=== PATIENT | male | born 1940 | race American Indian/Alaskan Native ===

== ENCOUNTER 2017-09-18 04:40 | Emergency (ER) | payer MEDICARE ==
--- NOTE | 2017-09-18 05:53 | Cat Scan Report ---
FINAL REPORT EXAM: CT HEAD/BRAIN WO CON HISTORY: tingling both hands and feet , elev BP, pain in back of head, Ne TECHNIQUE: Routine axial imaging was obtained of the brain without IV contrast. Comparison is made to the study 02/14/2014. FINDINGS: There is a low-attenuation area in the left cerebellar hemisphere with patchy hemorrhage and surrounding edema. There is slight mass effect on the 4th ventricle. The findings compatible with an acute to subacute hemorrhagic infarct. There is no evidence of proximal hydrocephalus. There is mild generalized volume loss. There are no extra-axial fluid collections. The sinuses reveal patchy mucosal thickening in the frontal, ethmoidal and sphenoid sinuses. The mastoid air cells are well pneumatized. IMPRESSION: Acute subacute hemorrhagic infarct in the left cerebellar hemisphere with slight mass effect on the 4th ventricle. No evidence of proximal hydrocephalus. Sinusitis as described. The findings were discussed with Dr. Recinos at 5:48 a.m. on 09/18/2017.
[2017-09-18 06:30] LABS: Hematocrit 36.2 % (35.5-45.6); Mean Corpuscular HGB Conc 33 % (32-34); Mean Corpuscular Hemoglobin 29 pg (28-32); Mean Corpuscular Volume 87 fl (84-94); Platelet Count 217 K/mm3 (140-440); Red Blood Count 4.15 M/mm3 (3.65-5.03); Red Cell Distribution Width 14.5 % (13.2-15.2); White Blood Count 6.6 K/mm3 (4.5-11.0)
--- NOTE | 2017-09-18 06:33 | Emergency Department Report ---
ED Neuro Deficit HPI - General Chief Complaint: Weakness Stated Complaint: HBP Time Seen by Provider: 09/18/17 06:11 Source: patient, EMS Mode of arrival: Stretcher Limitations: No Limitations - History of Present Illness Initial Comments: Mr. Leija is 77 years old male history of CABG, hypertension, cerebellar stroke last week for which she was admitted at [facility]. He presented today via EMS as a code stroke. Patient stated that since yesterday he started to have headache but he woke up this morning with right side numbness and tingling sensation. He denied any weakness or speech problem. When asking about imbalance or ataxia he stated that he did not stand up to feel that yet. Patient denied any bowel or bladder incontinence. Patient denied neck stiffness and fever. -: Last night Location: right arm, right leg History of same: Yes Quality: numb Associated Symptoms: headaches - Related Data Home Medications: Home Medications Medication Instructions Recorded Confirmed Last Taken Acetaminophen [Tylenol Extra 500 mg PO Q6HR PRN 09/18/17 09/18/17 Unknown Strength] AtorvaSTATin [Lipitor] 40 mg PO QHS 09/18/17 09/18/17 09/17/17 Cetirizine HCl [All Day Allergy] 10 mg PO DAILY PRN 09/18/17 09/18/17 Unknown Esomeprazole Magnesium [Nexium] 40 mg PO DAILY 09/18/17 09/18/17 09/17/17 Pantoprazole [Protonix] 40 mg PO QDAY 09/18/17 09/18/17 Unknown Simethicone [Gas Relief] 125 mg PO DAILY PRN 09/18/17 09/18/17 Unknown metFORMIN [Glucophage] 1,000 mg PO BID 09/18/17 09/18/17 09/17/17 Allergies/Adverse Reactions: Allergies Allergy/AdvReac Type Severity Reaction Status Date / Time ibuprofen Allergy Severe Shortness Verified 02/14/14 11:43 of Breath aspirin Allergy Shortness Verified 02/14/14 11:43 of Breath ED Review of Systems ROS: Stated complaint: HBP Other details as noted in HPI Comment: All other systems reviewed and negative Constitutional: denies: chills, fever Respiratory: denies: cough, orthopnea, shortness of breath, SOB with exertion Cardiovascular: denies: chest pain, palpitations, dyspnea on exertion, edema Gastrointestinal: denies: abdominal pain, nausea, vomiting, diarrhea, hematemesis, melena, hematochezia Musculoskeletal: denies: back pain Skin: denies: rash Neurological: headache, numbness, paresthesias. denies: weakness, confusion ED Past Medical Hx - Past Medical History Previous Medical History?: Yes Hx Hypertension: Yes Hx Diabetes: Yes Additional medical history: TIA - Surgical History Past Surgical History?: No Additional Surgical History: bypass, cardiac stents - Social History Smoking Status: Never Smoker Substance Use Type: Alcohol - Medications Home Medications: Home Medications Medication Instructions Recorded Confirmed Last Taken Type Acetaminophen [Tylenol Extra 500 mg PO Q6HR PRN 09/18/17 09/18/17 Unknown History Strength] AtorvaSTATin [Lipitor] 40 mg PO QHS 09/18/17 09/18/17 09/17/17 History Cetirizine HCl [All Day Allergy] 10 mg PO DAILY PRN 09/18/17 09/18/17 Unknown History Esomeprazole Magnesium [Nexium] 40 mg PO DAILY 09/18/17 09/18/17 09/17/17 History Pantoprazole [Protonix] 40 mg PO QDAY 09/18/17 09/18/17 Unknown History Simethicone [Gas Relief] 125 mg PO DAILY PRN 09/18/17 09/18/17 Unknown History metFORMIN [Glucophage] 1,000 mg PO BID 09/18/17 09/18/17 09/17/17 History ED Neuro Physical Exam - General Limitations: No Limitations General appearance: alert, in no apparent distress Suspected Stroke: Yes - Head Head exam: Present: atraumatic, normocephalic, normal inspection - Eye Eye exam: Present: normal appearance, PERRL - ENT ENT exam: Present: normal exam, normal orophraynx, mucous membranes moist - Neck Neck exam: Present: normal inspection, full ROM. Absent: tenderness, meningismus, lymphadenopathy - Respiratory Respiratory exam: Present: normal lung sounds bilaterally. Absent: respiratory distress, wheezes, rales, rhonchi, stridor, chest wall tenderness, accessory muscle use, decreased breath sounds, prolonged expiratory - Cardiovascular Cardiovascular Exam: Present: regular rate, normal rhythm, normal heart sounds - GI/Abdominal GI/Abdominal exam: Present: soft, normal bowel sounds. Absent: distended, tenderness, guarding, rebound, rigid, organomegaly, mass, bruit, pulsatile mass , hernia - Extremities Exam Extremities exam: Present: normal inspection, full ROM, normal capillary refill - Back Exam Back exam: Present: normal inspection. Absent: CVA tenderness (R), CVA tenderness (L) - Neurological Exam Neurological exam: Present: alert, oriented X3, CN II-XII intact, normal gait - NIHSS Assessment Interval: Baseline 1a. Level of Consciousness: alert 1b. LOC Questions: answers correctly 1c. LOC Commands: performs tasks correctly 2. Best Gaze: normal 3. Visual: no visual loss 4. Facial Palsy: normal symmetrical movement 5b. Motor Arm Right: no drift 5a. Motor Arm Left: no drift 6a. Motor Leg Left: no drift 6b. Motor Leg Right: no drift 7. Limb Ataxia: absent 8. Sensory: mild/moderate sensory loss 9. Best Language: no aphasia 10. Dysarthria: normal 11. Extinction/Inattention: no abnormality Total Score: 1 Stroke Severity: Minor Stroke - Skin Skin exam: Present: warm, intact, normal color. Absent: cyanosis, erythema ED Course Vital Signs 09/18/17 09/18/17 09/18/17 04:49 04:52 05:02 Temperature 98.3 F Pulse Rate 84 86 80 Respiratory 16 20 Rate Blood Pressure 148/78 148/78 Blood Pressure [Left] O2 Sat by Pulse 97 98 Oximetry 09/18/17 09/18/17 09/18/17 05:11 05:16 05:30 Temperature Pulse Rate 77 77 Respiratory 20 18 17 Rate Blood Pressure 148/78 148/78 Blood Pressure [Left] O2 Sat by Pulse 97 Oximetry 09/18/17 09/18/17 09/18/17 06:00 06:16 06:30 Temperature Pulse Rate 79 79 71 Respiratory 12 15 22 Rate Blood Pressure 148/78 148/78 148/78 Blood Pressure [Left] O2 Sat by Pulse Oximetry 09/18/17 09/18/17 09/18/17 06:46 07:00 07:15 Temperature Pulse Rate 78 79 92 H Respiratory 16 18 20 Rate Blood Pressure 148/78 186/97 Blood Pressure [Left] O2 Sat by Pulse Oximetry 09/18/17 09/18/17 09/18/17 07:23 07:30 07:38 Temperature 97.1 F L Pulse Rate 72 73 74 Respiratory 18 16 Rate Blood Pressure 198/96 198/96 Blood Pressure 190/90 [Left] O2 Sat by Pulse 97 Oximetry 09/18/17 08:01 Temperature Pulse Rate 88 Respiratory 27 H Rate Blood Pressure 143/72 Blood Pressure [Left] O2 Sat by Pulse 97 Oximetry - Reevaluation(s) Reevaluation #1: 09/18/17 08:51 Patient reevaluated. Patient still denying any new weakness but he is still complaining of numbness to his right upper and lower extremity and headache. - Lab Data Result diagrams: 09/18/17 06:20 09/18/17 06:20 Lab Results 09/18/17 09/18/17 09/18/17 Range/Units 06:20 06:20 06:20 WBC 6.6 (4.5-11.0) K/mm3 RBC 4.15 (3.65-5.03) M/mm3 Hgb 12.0 (11.8-15.2) gm/dl Hct 36.2 (35.5-45.6) % MCV 87 (84-94) fl MCH 29 (28-32) pg MCHC 33 (32-34) % RDW 14.5 (13.2-15.2) % Plt Count 217 (140-440) K/mm3 Add Manual Diff Complete Total Counted 100 Seg Neuts % (Manual) 47.0 (40.0-70.0) % Band Neutrophils % 0 % Lymphocytes % (Manual) 35.0 (13.4-35.0) % Reactive Lymphs % (Man) 1.0 % Monocytes % (Manual) 10.0 H (0.0-7.3) % Eosinophils % (Manual) 6.0 H (0.0-4.3) % Basophils % (Manual) 1.0 (0.0-1.8) % Metamyelocytes % 0 % Myelocytes % 0 % Promyelocytes % 0 % Blast Cells % 0 % Nucleated RBC % Not Reportable Seg Neutrophils # Man 3.1 (1.8-7.7) K/mm3 Band Neutrophils # 0.0 K/mm3 Lymphocytes # (Manual) 2.3 (1.2-5.4) K/mm3 Abs React Lymphs (Man) 0.1 K/mm3 Monocytes # (Manual) 0.7 (0.0-0.8) K/mm3 Eosinophils # (Manual) 0.4 (0.0-0.4) K/mm3 Basophils # (Manual) 0.1 (0.0-0.1) K/mm3 Metamyelocytes # 0.0 K/mm3 Myelocytes # 0.0 K/mm3 Promyelocytes # 0.0 K/mm3 Blast Cells # 0.0 K/mm3 WBC Morphology Not Reportable Hypersegmented Neuts Not Reportable Hyposegmented Neuts Not Reportable Hypogranular Neuts Not Reportable Smudge Cells Not Reportable Toxic Granulation Not Reportable Toxic Vacuolation Not Reportable Dohle Bodies Not Reportable Pelger-Huet Anomaly Not Reportable [place] Rods Not Reportable Platelet Estimate Appears normal Clumped Platelets Not Reportable Plt Clumps, EDTA Not Reportable Large Platelets Not Reportable Giant Platelets Not Reportable Platelet Satelliting Not Reportable Plt Morphology Comment Not Reportable RBC Morphology Not Reportable Dimorphic RBCs Not Reportable Polychromasia Not Reportable Hypochromasia Not Reportable Poikilocytosis Not Reportable Anisocytosis 1+ Microcytosis Not Reportable Macrocytosis Not Reportable Spherocytes Not Reportable Pappenheimer Bodies Not Reportable Sickle Cells Not Reportable Target Cells Not Reportable Tear Drop Cells Not Reportable Ovalocytes 1+ Helmet Cells Few Chow-Tor[place] Bodies Not Reportable [place] Rings Not Reportable [place] Cells Not Reportable Bite Cells Not Reportable Crenated Cell Not Reportable Elliptocytes Few Acanthocytes (Spur) Not Reportable Rouleaux Not Reportable Hemoglobin C Crystals Not Reportable Schistocytes Not Reportable Malaria parasites Not Reportable Pravez Bodies Not Reportable Hem Pathologist Commnt No PT 12.3 (12.2-14.9) Sec. INR 0.87 (0.87-1.13) APTT 32.8 (24.2-36.6) Sec. Thrombin Time (15.1-19.6) Sec. Sodium 139 (137-145) mmol/L Potassium 4.3 (3.6-5.0) mmol/L Chloride 101.2 (98-107) mmol/L Carbon Dioxide 25 (22-30) mmol/L Anion Gap 17 mmol/L BUN 11 (9-20) mg/dL Creatinine 0.8 (0.8-1.5) mg/dL Estimated GFR > 60 ml/min BUN/Creatinine Ratio 14 % Glucose 194 H (75-100) mg/dL Calcium 9.5 (8.4-10.2) mg/dL Troponin T < 0.010 (0.00-0.029) ng/mL Urine Color (Yellow) Urine Turbidity (Clear) Urine pH (5.0-7.0) Ur Specific Allen (1.003-1.030) Urine Protein (Negative) mg/dL Urine Glucose (UA) (Negative) mg/dL Urine Ketones (Negative) mg/dL Urine Blood (Negative) Urine Nitrite (Negative) Urine Bilirubin (Negative) Urine Urobilinogen (<2.0) mg/dL Ur Leukocyte Esterase (Negative) Urine WBC (Auto) (0.0-6.0) /HPF Urine RBC (Auto) (0.0-6.0) /HPF U Epithel Cells (Auto) (0-13.0) /HPF 09/18/17 09/18/17 Range/Units 06:20 Unknown WBC (4.5-11.0) K/mm3 RBC (3.65-5.03) M/mm3 Hgb (11.8-15.2) gm/dl Hct (35.5-45.6) % MCV (84-94) fl MCH (28-32) pg MCHC (32-34) % RDW (13.2-15.2) % Plt Count (140-440) K/mm3 Add Manual Diff Total Counted Seg Neuts % (Manual) (40.0-70.0) % Band Neutrophils % % Lymphocytes % (Manual) (13.4-35.0) % Reactive Lymphs % (Man) % Monocytes % (Manual) (0.0-7.3) % Eosinophils % (Manual) (0.0-4.3) % Basophils % (Manual) (0.0-1.8) % Metamyelocytes % % Myelocytes % % Promyelocytes % % Blast Cells % % Nucleated RBC % Seg Neutrophils # Man (1.8-7.7) K/mm3 Band Neutrophils # K/mm3 Lymphocytes # (Manual) (1.2-5.4) K/mm3 Abs React Lymphs (Man) K/mm3 Monocytes # (Manual) (0.0-0.8) K/mm3 Eosinophils # (Manual) (0.0-0.4) K/mm3 Basophils # (Manual) (0.0-0.1) K/mm3 Metamyelocytes # K/mm3 Myelocytes # K/mm3 Promyelocytes # K/mm3 Blast Cells # K/mm3 WBC Morphology Hypersegmented Neuts Hyposegmented Neuts Hypogranular Neuts Smudge Cells Toxic Granulation Toxic Vacuolation Dohle Bodies Pelger-Huet Anomaly [place] Rods Platelet Estimate Clumped Platelets Plt Clumps, EDTA Large Platelets Giant Platelets Platelet Satelliting Plt Morphology Comment RBC Morphology Dimorphic RBCs Polychromasia Hypochromasia Poikilocytosis Anisocytosis Microcytosis Macrocytosis Spherocytes Pappenheimer Bodies Sickle Cells Target Cells Tear Drop Cells Ovalocytes Helmet Cells Chow-Torrance Bodies [place] Rings Guerita Cells Bite Cells Crenated Cell Elliptocytes Acanthocytes (Spur) Rouleaux Hemoglobin C Crystals Schistocytes Malaria parasites Parvez Bodies Hem Pathologist Commnt PT (12.2-14.9) Sec. INR (0.87-1.13) APTT (24.2-36.6) Sec. Thrombin Time 15.9 (15.1-19.6) Sec. Sodium (137-145) mmol/L Potassium (3.6-5.0) mmol/L Chloride (98-107) mmol/L Carbon Dioxide (22-30) mmol/L Anion Gap mmol/L BUN (9-20) mg/dL Creatinine (0.8-1.5) mg/dL Estimated GFR ml/min BUN/Creatinine Ratio % Glucose (75-100) mg/dL Calcium (8.4-10.2) mg/dL Troponin T (0.00-0.029) ng/mL Urine Color Straw (Yellow) Urine Turbidity Clear (Clear) Urine pH 7.0 (5.0-7.0) Ur Specific Allen 1.008 (1.003-1.030) Urine Protein <15 mg/dl (Negative) mg/dL Urine Glucose (UA) Neg (Negative) mg/dL Urine Ketones Neg (Negative) mg/dL Urine Blood Neg (Negative) Urine Nitrite Neg (Negative) Urine Bilirubin Neg (Negative) Urine Urobilinogen < 2.0 (<2.0) mg/dL Ur Leukocyte Esterase Neg (Negative) Urine WBC (Auto) 1.0 (0.0-6.0) /HPF Urine RBC (Auto) 1.0 (0.0-6.0) /HPF U Epithel Cells (Auto) < 1.0 (0-13.0) /HPF - EKG Data -: EKG Interpreted by Ut EKG shows normal: sinus rhythm Rate: normal Interpretation: no acute changes - Radiology Data Radiology results: report reviewed Referring Physician: BETO OLMSTEAD Patient Name: XIOMARA LEIJA Date of : 1940 Sex: Male Report Date: 2017-09-18 Report Status: Finalized Findings [facility] [address] [place] [address] Cat Scan Report Signed Patient: XIOMARA LEIJA MR#: [id number] : 1940 Acct:[id number] Age/Sex: 77 / M ADM Date: 09/18/17 Loc: ED Attending Dr: Ordering Physician: BETO OLMSTEAD MD Date of Service: 09/18/17 Procedure(s): CT head/brain wo con Accession Number(s): [id number] cc: ED MD AYSHA FINAL REPORT EXAM: CT HEAD/BRAIN WO CON HISTORY: tingling both hands and feet , elev BP, pain in back of head, Ne TECHNIQUE: Routine axial imaging was obtained of the brain without IV contrast. Comparison is made to the study 02/14/2014. FINDINGS: There is a low-attenuation area in the left cerebellar hemisphere with patchy hemorrhage and surrounding edema. There is slight mass effect on the 4th ventricle. The findings compatible with an acute to subacute hemorrhagic infarct. There is no evidence of proximal hydrocephalus. There is mild generalized volume loss. There are no extra-axial fluid collections. The sinuses reveal patchy mucosal thickening in the frontal, ethmoidal and sphenoid sinuses. The mastoid air cells are well pneumatized. IMPRESSION: Acute subacute hemorrhagic infarct in the left cerebellar hemisphere with slight mass effect on the 4th ventricle. No evidence of proximal hydrocephalus. Sinusitis as described. The findings were discussed with Dr. Recinos at 5:48 a.m. on 09/18/2017. Transcribed By: RB Dictated By: ALLYSSA LYN MD Electronically Authenticated By: ALLYSSA LYN MD Signed Date/Time: 09/18/17149 DD/ 9 TD/TT: 09/18/17149 - Medical Decision Making Discussed with Dr. Gomes from [facility], inform about the patient, he stated that he will look at the images and will call me back. Discussed with Dr. Nicole Harman from [facility] [place], she accepted the patient to be transfer to [facility] [place]. Critical care attestation.: If time is entered above; I have spent that time in minutes in the direct care of this critically ill patient, excluding procedure time. ED Disposition Clinical Impression: Stroke, New cerebellar infarct Disposition: DC/TX-70 ANOTHER TYPE HLTHCARE Is pt being admited?: No Condition: Stable Referrals: ARVIND WETZEL MD [Primary Care Provider] - 3-5 Days
[2017-09-18] MEDS ORDERED: MORPHINE ONE (06:35)
[2017-09-18 06:40] LABS: INR 0.87 (0.87-1.13); Partial Thromboplastin Time 32.8 Sec. (24.2-36.6)
[2017-09-18 06:47] LABS: Bilirubin,Urine NEG (Negative); Blood,Urine NEG (Negative); Ketones,Urine NEG (Negative); Leukocyte Esterase,Urine NEG (Negative); Nitrite,Urine NEG (Negative); Protein,Urine <15 mg/dL mg/dL (Negative); Urobilinogen,Urine < 2.0 mg/dL (<2.0)
[2017-09-18 06:51] LABS: Anion Gap 17 mmol/L; BUN/Creatinine Ratio 14; Blood Urea Nitrogen 11 mg/dL (9-20); Calcium 9.5 mg/dL (8.4-10.2); Carbon Dioxide 25 mmol/L (22-30); Chloride 101.2 mmol/L (98-107); Glucose 194 mg/dL (75-100); Potassium 4.3 mmol/L (3.6-5.0); Sodium 139 mmol/L (137-145)
[2017-09-18 07:28] LABS: Blastocytes % (Manual) 0 %
[2017-09-18 07:29] LABS: Anisocytosis 1+; Diff Status Complete; Elliptocytes Few; Helmet Cells Few; Ovalocytes 1+
[2017-09-18] MEDS ORDERED: APRESOLINE ONE (07:36)
[2017-09-18] MEDS ORDERED: APRESOLINE IV ONE (07:38)
[2017-09-18 10:32] VITALS: BP 140/73
== END 2017-09-18 11:01 | disposition other institution (70) ==
LOC: ED 04:40
DX: I63.9 Cerebral infarction, unspecified (principal); I10 Essential (primary) hypertension; E11.9 Type 2 diabetes mellitus without complications
CPT/HCPCS: 36415; 70450; 80048; 81001; 84484; 85007; 85025; 85610; 85670; 85730; 93005; 93010; 96374; 99285; J0360; J2270

== ENCOUNTER 2017-10-30 10:31 | Observation (INO) | payer MEDICARE ==
[2017-10-30] MEDS ORDERED: GARAMYCIN 80 MG in NACL 0.9% 100 ML IV SCH (11:45)
[2017-10-30] MEDS ORDERED: ANCEF/STERILE WATER 2 GM/20 ML IV NR (12:00)
--- NOTE | 2017-10-30 12:03 | Anesthesia Day of Surgery ---
Anesthesia Day of Surgery - Day of Surgery Patient Examined: Yes Patient H&P Reviewed: Yes Patient is NPO: Yes
[2017-10-30] MEDS ORDERED: ZOFRAN IV PRN (12:05)
--- NOTE | 2017-10-30 12:05 | Anesthesia Consultation ---
Anesthesia Consult and Med Hx Date of service: 10/30/17 - Airway Anesthetic Teeth Evaluation: Poor (missing/broken) ROM Head & Neck: Adequate Mental/Hyoid Distance: Adequate Mallampati Class: Class II Intubation Access Assessment: Probably Good - Pulmonary Exam CTA: Yes (decreased BS) - Cardiac Exam Cardiac Exam: RRR - Pre-Operative Health Status ASA Pre-Surgery Classification: ASA4 Proposed Anesthetic Plan: General - Pulmonary Hx Smoking: Yes (STOPPED 2002,10/10-12PPD X 35 YRS) COPD: Yes (DAILY IHHALERS) Hx Sleep Apnea: No (MARY PRE SCREEN HIGH RISK.) - Cardiovascular System Hx Hypertension: Yes (X 10 YRS) Hx Coronary Artery Disease: Yes (s/p cabg/stents) Hx Heart Attack/AMI: No Hx Angina: Yes (OCC) - Central Nervous System CVA: Yes (X2-LAST ONE 09/2017 ,RT SIDED NUMBNESS) - Gastrointestinal Hx Gastroesophageal Reflux Disease: Yes (controlled) - Endocrine Hx Non-Insulin Dependent Diabetes: Yes
--- NOTE | 2017-10-30 12:33 | Progress Note ---
Assessment and Plan wrong helim tank cannot do case until later this afternoon cases at other institution Subjective Date of service: 10/30/17 Principal diagnosis: CAP Objective - Constitutional Vitals: Vital Signs - 12hr 10/30/17 10/30/17 11:15 12:11 Temperature 97.8 F 97.8 F Pulse Rate 90 90 Respiratory 22 22 Rate Blood Pressure 144/82 144/82 O2 Sat by Pulse 97 97 Oximetry - Labs Labs: Abnormal lab results 10/30/17 Range/Units 11:29 POC Glucose 197 H (70-105)
[2017-10-30] MEDS ORDERED: AMBIEN PO PRN (12:43)
[2017-10-30] MEDS ORDERED: PEPCID IV NR (13:00)
[2017-10-30] MEDS ORDERED: NACL 0.9% 1000 ML 1,000 ML IV SCH (14:00)
[2017-10-30] MEDS ORDERED: NS 0.45/KCL 20MEQ 20 MEQ/1,000 ML BAG IV SCH (15:00)
[2017-10-30] MEDS ORDERED: LOPRESSOR ONE (18:43)
[2017-10-30] MEDS ORDERED: NORVASC ONE (18:43)
[2017-10-30] MEDS: NORVASC PO SCH (18:54)
[2017-10-30] MEDS: LOPRESSOR PO SCH ×2 (18:54→22:44)
[2017-10-30] MEDS: BROVANA NEBU IH SCH (21:46)
[2017-10-30] MEDS: PULMICORT IH SCH (21:46)
[2017-10-30] MEDS ORDERED: NON-FORMULARY (Fluticasone/Salmeterol 1 PUFF) INHALATION SCH (22:00)
[2017-10-31] MEDS ORDERED: NACL 0.9% 1000 ML 1,000 ML IV SCH (06:00)
[2017-10-31] MEDS ORDERED: PEPCID IV NR (06:00)
[2017-10-31] MEDS ORDERED: DECADRON ONE (06:47)
[2017-10-31] MEDS ORDERED: DIPRIVAN 10 MG/ML IV ONE (06:47)
[2017-10-31] MEDS ORDERED: XYLOCAINE MPF 2% ONE (06:48)
[2017-10-31] MEDS ORDERED: ZOFRAN ONE (06:48)
[2017-10-31] MEDS ORDERED: GARAMYCIN/NS 80 MG/100 ML 100 ML IV SCH (07:00)
[2017-10-31] MEDS ORDERED: ANCEF/STERILE WATER 2 GM/20 ML IV NR (07:00)
[2017-10-31] MEDS ORDERED: DILAUDID ONE (07:19)
[2017-10-31] MEDS ORDERED: NACL 0.9% 1000 ML 1,000 ML ONE ×3 (08:15→08:41)
--- NOTE | 2017-10-31 08:33 | Post Operative Note ---
Date of procedure: 10/31/17 Pre-op diagnosis: ca prostate Post-op diagnosis: same Findings: as above Procedure: cysto cryoablation prostate Anesthesia: GETA Surgeon: ALEXSANDRA SURESH Estimated blood loss: minimal Pathology: none Condition: stable Disposition: PACU
--- NOTE | 2017-10-31 08:34 | Discharge Summary ---
Short Stay Discharge Plan Activity: other (no straining ) Weight Bearing Status: Full Weight Bearing Diet: regular, low fat, low salt Special Instructions: other (inc fluids ) Durable Medical Equipment Needed Upon Discharge: other ([facility] ) Follow up with: ARVIND WETZEL MD [Primary Care Provider] - 7 Days ALEXSANDRA SURESH MD [Staff Physician] - 7 Days
[2017-10-31] MEDS ORDERED: WATER FOR IRRIG STERILE IR ONE (08:45)
[2017-10-31] MEDS: PULMICORT IH SCH (09:35)
[2017-10-31] MEDS: SUBLIMAZE IV PRN ×2 (09:35→09:55)
[2017-10-31] MEDS: BROVANA NEBU IH SCH (09:35)
[2017-10-31] MEDS ORDERED: DILAUDID IV PRN (09:50)
[2017-10-31] MEDS ORDERED: ZOFRAN IV PRN (09:50)
[2017-10-31] MEDS: LOPRESSOR PO SCH (10:00)
[2017-10-31] MEDS: NORVASC PO SCH (10:00)
[2017-10-31 10:44] VITALS: BP 162/92
--- NOTE | 2017-10-31 11:30 | Operative Report ---
PREOPERATIVE DIAGNOSIS: Prostate cancer, localized right lobe. POSTOPERATIVE DIAGNOSIS: Prostate cancer, localized right lobe. PROCEDURE: Cystoscopy and cryoablation of the prostate. SURGEON: Thiago Michel MD ANESTHESIA: General. FINDINGS: This is a gentleman who presented yesterday for treatment of his prostate. When he was getting in the preoperative area, he had a bowel prep and it was found that the helium tank was not the right tank for the cryoablation. We could not do the procedure. He was kept overnight for hydration. He now presents for surgery. DESCRIPTION OF PROCEDURE: The patient was brought to the operating room and placed on the operating table. Following induction of anesthesia, placed in lithotomy position, prepped and draped in usual sterile fashion. At this point, the ultrasound probe was placed and measured the gland to be 29.5-30 grams. This diminished with hormonal therapy. Acuna catheter was easily placed and the gland was imaged as mentioned. Cryoprobe 1 and 2 were placed and then Denonvilliers temperature probe was placed as was the apical temperature probe, which was the sphincter probe. Probes 5 and 6 and then 3 and 4 were placed. Excellent visualization was obtained. We rechecked the probe multiple times, then we performed flexible cystoscopy and placed the rigid Amplatz wire and placed the warming device. The first freeze was carried out. Excellent freeze was obtained. Denonvilliers came down to approximately 2 degrees. We then did a ____ was done, we noticed that the warmer was leaking from the machine, which had been a problem last time and the warmer was changed and we reinserted a new warming catheter under ultrasound guidance once again without difficulty. The probes were checked and the second freeze was carried out in identical fashion. The patient tolerated the procedure well. A 20-minute thaw was carried out and a 20 coude was placed. The patient tolerated the procedure well and brought to recovery in stable condition. JOB# [id number] BRAXTON/SALEEM
--- NOTE | 2017-10-31 14:43 | Anesthesia Day of Surgery ---
Anesthesia Day of Surgery - Day of Surgery Patient Examined: Yes Patient H&P Reviewed: Yes Patient is NPO: Yes
--- NOTE | 2017-10-31 14:43 | Post Anesthesia Evaluation ---
- Post Anesthesia Evaluation Patient Participated: Yes Airway Patent: Yes Stable Respiratory Function: Yes Nausea/Vomiting: No Temp > 96.8F: Yes Pain Manageable: Yes Adequeate Hydration: Yes Anesthesia Complications: No
== END 2017-10-31 13:46 | disposition home health service (06) ==
LOC: OR 10:31 → 3B-SURG 13:44
PROVIDERS: ADMIT Urology; ATTEND Urology
DX: C61 Malignant neoplasm of prostate (principal)
CPT/HCPCS: 55873; 82962; 94640; 96374; 96375; A4217; C2618; G0378; J1100; J1170; J1580; J2405; J2704; J3010; J7030; J0690

== ENCOUNTER 2017-12-05 15:31 | Emergency (ER) | payer MEDICARE ==
[2017-12-05 15:49] VITALS: BP 137/73
[2017-12-05] MEDS ORDERED: NACL 0.9% 1000 ML 1,000 ML IV ONE (18:00)
--- NOTE | 2017-12-05 18:03 | Emergency Department Report ---
ED General Adult HPI - General Chief complaint: Hyperglycemia Stated complaint: BLOOD SUGAR HIGH Time Seen by Provider: 12/05/17 17:50 Source: patient Mode of arrival: Ambulatory Limitations: No Limitations - History of Present Illness Initial comments: Patient is a 77-year-old male history of diabetes who states his blood sugar was 400 this morning. Patient has had polydipsia polyuria. Patient denies missing any doses of his medications he says he has been off on the timing of his medications however recently. Patient denies any nausea vomiting diarrhea abdominal pain chest pain shortness of breath or dysuria - Related Data Home Medications Medication Instructions Recorded Confirmed Last Taken Acetaminophen [Tylenol Extra 500 mg PO Q6HR PRN 09/18/17 10/30/17 10/23/17 Strength] AtorvaSTATin [Lipitor] 40 mg PO QHS 09/18/17 10/17/17 10/29/17 Cetirizine HCl [All Day Allergy] 10 mg PO DAILY PRN 09/18/17 10/17/17 10/29/17 Pantoprazole [Protonix] 40 mg PO QDAY 09/18/17 10/17/17 10/29/17 Simethicone [Gas Relief] 125 mg PO DAILY PRN 09/18/17 10/17/17 10/29/17 metFORMIN [Glucophage] 1,000 mg PO BID 09/18/17 10/17/17 10/29/17 Fluticasone/Salmeterol [Advair 1 puff INHALATION BID 10/17/17 10/30/17 10/30/17 10:00 250-50 Diskus] Glimepiride [Amaryl] 1 mg PO QAM 10/17/17 10/17/17 10/29/17 Meloxicam [Mobic] 7.5 mg PO DAILY 10/17/17 10/17/17 10/29/17 Metoprolol [Lopressor] 100 mg PO BID 10/17/17 10/17/17 10/29/17 09:00 Oxybutynin [Ditropan] 5 mg PO BID 10/17/17 10/17/17 10/29/17 amLODIPine [Norvasc] 10 mg PO DAILY 10/17/17 10/17/17 10/29/17 Aspirin [Lo-Dose Aspirin EC] 81 mg PO DAILY 10/29/17 10/29/1718 Allergies Allergy/AdvReac Type Severity Reaction Status Date / Time ibuprofen Allergy Severe Shortness Verified 12/05/17 15:41 of Breath aspirin Allergy GI UPSET Verified 12/05/17 15:41 ED Review of Systems ROS: Stated complaint: BLOOD SUGAR HIGH Other details as noted in HPI Comment: All other systems reviewed and negative ED Past Medical Hx - Past Medical History Hx Hypertension: Yes Hx Diabetes: Yes Additional medical history: TIA - Surgical History Additional Surgical History: bypass, cardiac stents - Social History Smoking Status: Never Smoker Substance Use Type: Alcohol - Medications Home Medications: Home Medications Medication Instructions Recorded Confirmed Last Taken Type Acetaminophen [Tylenol Extra 500 mg PO Q6HR PRN 09/18/17 10/30/17 10/23/17 History Strength] AtorvaSTATin [Lipitor] 40 mg PO QHS 09/18/17 10/17/17 10/29/17 History Cetirizine HCl [All Day Allergy] 10 mg PO DAILY PRN 09/18/17 10/17/17 10/29/17 History Pantoprazole [Protonix] 40 mg PO QDAY 09/18/17 10/17/17 10/29/17 History Simethicone [Gas Relief] 125 mg PO DAILY PRN 09/18/17 10/17/17 10/29/17 History metFORMIN [Glucophage] 1,000 mg PO BID 09/18/17 10/17/17 10/29/17 History Fluticasone/Salmeterol [Advair 1 puff INHALATION BID 10/17/17 10/30/17 10/30/17 10:00 History 250-50 Diskus] Glimepiride [Amaryl] 1 mg PO QAM 10/17/17 10/17/17 10/29/17 History Meloxicam [Mobic] 7.5 mg PO DAILY 10/17/17 10/17/17 10/29/17 History Metoprolol [Lopressor] 100 mg PO BID 10/17/17 10/17/17 10/29/17 09:00 History Oxybutynin [Ditropan] 5 mg PO BID 10/17/17 10/17/17 10/29/17 History amLODIPine [Norvasc] 10 mg PO DAILY 10/17/17 10/17/17 10/29/17 History Aspirin [Lo-Dose Aspirin EC] 81 mg PO DAILY 10/29/17 10/29/17 10/29/17 History ED Physical Exam - General Limitations: No Limitations General appearance: alert, in no apparent distress - Head Head exam: Present: atraumatic, normocephalic - Eye Eye exam: Present: normal appearance - ENT ENT exam: Present: mucous membranes moist - Neck Neck exam: Present: normal inspection - Respiratory Respiratory exam: Present: normal lung sounds bilaterally. Absent: respiratory distress - Cardiovascular Cardiovascular Exam: Present: regular rate, normal rhythm. Absent: systolic murmur, diastolic murmur, rubs, gallop - GI/Abdominal GI/Abdominal exam: Present: soft, normal bowel sounds - Rectal Rectal exam: Present: deferred - Extremities Exam Extremities exam: Present: normal inspection - Back Exam Back exam: Present: normal inspection - Neurological Exam Neurological exam: Present: alert, oriented X3 - Psychiatric Psychiatric exam: Present: normal affect, normal mood - Skin Skin exam: Present: warm, dry, intact, normal color. Absent: rash ED Course Vital Signs 12/05/17 15:41 Temperature 97.5 F L Pulse Rate 69 Respiratory 18 Rate Blood Pressure 137/73 O2 Sat by Pulse 99 Oximetry ED Medical Decision Making - Lab Data Lab Results 12/05/17 Range/Units 15:50 POC Glucose 235 H (70-105) - Medical Decision Making Glucose is 235 which is not in the critical range. Patient because of the polyuria may have some mild dehydration patient will be given a liter of normal saline and be discharged home. Critical care attestation.: If time is entered above; I have spent that time in minutes in the direct care of this critically ill patient, excluding procedure time. ED Disposition Clinical Impression: Hyperglycemia Disposition: DC-01 TO HOME OR SELFCARE Is pt being admited?: No Does the pt Need Aspirin: No Condition: Stable Instructions: Diabetic Hyperglycemia (ED) Referrals: PRIMARY CARE,MD [Primary Care Provider] - 3-5 Days
== END 2017-12-05 19:46 | disposition home or self-care (01) ==
LOC: ED 15:31
DX: E11.65 Type 2 diabetes mellitus with hyperglycemia (principal); I10 Essential (primary) hypertension; Z79.82 Long term (current) use of aspirin
CPT/HCPCS: 82962; 96360; 99282; J7030

== ENCOUNTER 2019-08-24 20:26 | Inpatient (IN) | payer MEDICARE ==
--- NOTE | 2019-08-24 20:56 | Emergency Department Report ---
ED Neuro Deficit HPI - General Stated Complaint: TINGLING IN FINGERS/DIFF WALKING Time Seen by Provider: 08/24/19 20:48 - History of Present Illness Initial Comments: Patient is 79 years old male with history of hypertension, diabetes, CABG, TIA. Patient brought to the emergency room via EMS for evaluation of sudden onset of body spasm. Patient stated that his symptoms started around 7:00 tonight. Patient stated that he started having weakness in his lower extremities mainly to the left side. Patient stated that he started dragging his leg. Patient denied any difficulty speaking. Patient also denied any headache. Stroke protocol immediately initiated. -: Sudden Location: left leg Presenting Symptoms: Present: Weak/Paralyzed One Side History of same: No Place: home Severity: moderate Associated Symptoms: denies other symptoms - Related Data Home Medications: Home Medications Medication Instructions Recorded Confirmed Last Taken Cetirizine HCl [All Day Allergy] 10 mg PO DAILY PRN 09/18/17 08/24/19 10/29/17 Fluticasone/Salmeterol (Nf) 1 puff INHALATION BID 10/17/17 08/24/19 08/24/19 [Advair 250-50 Diskus (Nf)] Metoprolol [Lopressor TAB] 100 mg PO BID 10/17/17 08/24/19 08/24/19 Previous Rx's Medication Instructions Recorded Last Taken Type ALBUTEROL Inhaler (OR & NICU) 2 puff IH QID PRN #8.5 gram 08/27/19 Unknown Rx [ProAir HFA Inhaler] Acetaminophen [Acetaminophen TAB] 1 tab PO Q4H PRN #15 tablet 08/27/19 Unknown Rx AtorvaSTATin [Lipitor] 40 mg PO QHS #30 tab 08/27/19 Unknown Rx Clopidogrel [Plavix] 75 mg PO QDAY #30 tablet 08/27/19 Unknown Rx Gabapentin 100 mg PO DAILY #30 tab 08/27/19 08/24/19 Rx Oxybutynin [Ditropan] 5 mg PO BID #60 08/27/19 08/24/19 Rx Pantoprazole [Protonix TAB] 40 mg PO QDAY #30 08/27/19 08/24/19 Rx amLODIPine 10 mg PO DAILY #30 tab 08/27/19 08/24/19 Rx guaiFENesin [Robitussin] 200 mg PO Q4H PRN #30 oral.liqd 08/27/19 Unknown Rx metFORMIN [Glucophage] 2 tab PO BID #120 tab 08/27/19 Unknown Rx Allergies/Adverse Reactions: Allergies Allergy/AdvReac Type Severity Reaction Status Date / Time ibuprofen Allergy Severe Shortness Verified 12/05/17 15:41 of Breath ED Review of Systems ROS: Stated complaint: TINGLING IN FINGERS/DIFF WALKING Other details as noted in HPI Comment: All other systems reviewed and negative Constitutional: denies: chills, fever Respiratory: denies: cough, shortness of breath, SOB with exertion, wheezing Cardiovascular: denies: chest pain, palpitations Gastrointestinal: denies: abdominal pain, nausea, vomiting Musculoskeletal: denies: back pain Neurological: weakness, abnormal gait. denies: headache, numbness, paresthesias, confusion, vertigo ED Past Medical Hx - Past Medical History Hx Hypertension: Yes Hx Diabetes: Yes Additional medical history: TIA - Surgical History Additional Surgical History: bypass, cardiac stents - Social History Smoking Status: Never Smoker Substance Use Type: Alcohol - Medications Home Medications: Home Medications Medication Instructions Recorded Confirmed Last Taken Type Cetirizine HCl [All Day Allergy] 10 mg PO DAILY PRN 09/18/17 08/24/19 10/29/17 History Fluticasone/Salmeterol (Nf) 1 puff INHALATION BID 10/17/17 08/24/19 08/24/19 History [Advair 250-50 Diskus (Nf)] Metoprolol [Lopressor TAB] 100 mg PO BID 10/17/17 08/24/19 08/24/19 History ALBUTEROL Inhaler (OR & NICU) 2 puff IH QID PRN #8.5 gram 08/27/19 Unknown Rx [ProAir HFA Inhaler] Acetaminophen [Acetaminophen TAB] 1 tab PO Q4H PRN #15 tablet 08/27/19 Unknown Rx AtorvaSTATin [Lipitor] 40 mg PO QHS #30 tab 08/27/19 Unknown Rx Clopidogrel [Plavix] 75 mg PO QDAY #30 tablet 08/27/19 Unknown Rx Gabapentin 100 mg PO DAILY #30 tab 08/27/19 08/24/19 08/24/19 Rx Oxybutynin [Ditropan] 5 mg PO BID #60 08/27/19 08/24/19 08/24/19 Rx Pantoprazole [Protonix TAB] 40 mg PO QDAY #30 08/27/19 08/24/19 08/24/19 Rx amLODIPine 10 mg PO DAILY #30 tab 08/27/19 08/24/19 08/24/19 Rx guaiFENesin [Robitussin] 200 mg PO Q4H PRN #30 oral.liqd 08/27/19 Unknown Rx metFORMIN [Glucophage] 2 tab PO BID #120 tab 08/27/19 Unknown Rx ED Neuro Physical Exam - General General appearance: alert, in no apparent distress Suspected Stroke: Yes - Head Head exam: Present: atraumatic, normocephalic, normal inspection - Eye Eye exam: Present: normal appearance - ENT ENT exam: Present: normal exam, normal orophraynx, mucous membranes moist - Neck Neck exam: Present: normal inspection, full ROM. Absent: tenderness, meningismus, lymphadenopathy, thyromegaly - Respiratory Respiratory exam: Present: normal lung sounds bilaterally - Cardiovascular Cardiovascular Exam: Present: regular rate, normal rhythm, normal heart sounds - GI/Abdominal GI/Abdominal exam: Present: soft, normal bowel sounds. Absent: distended, tenderness, guarding, rebound, rigid, organomegaly, mass, bruit, pulsatile mass - Extremities Exam Extremities exam: Present: normal inspection, full ROM, normal capillary refill. Absent: tenderness, pedal edema, joint swelling, calf tenderness - Back Exam Back exam: Present: normal inspection, full ROM. Absent: CVA tenderness (R), CVA tenderness (L), muscle spasm, paraspinal tenderness, vertebral tenderness - Neurological Exam Neurological exam: Present: alert, oriented X3, CN II-XII intact - NIHSS Assessment Interval: Baseline 1a. Level of Consciousness: alert/keenly responsive 1b. LOC Questions: answers both correctly 1c. LOC Commands: performs tasks correctly 2. Best Gaze: normal 3. Visual: no visual loss 4. Facial Palsy: normal symmetrical movement 5b. Motor Arm Right: no drift 5a. Motor Arm Left: no drift 6a. Motor Leg Left: some gravity effort 6b. Motor Leg Right: no drift 7. Limb Ataxia: absent 8. Sensory: normal 9. Best Language: no aphasia 10. Dysarthria: normal 11. Extinction/Inattention: no abnormality Total Score: 2 Stroke Severity: Minor Stroke - Psychiatric Psychiatric exam: Present: normal mood - Skin Skin exam: Present: warm, intact, normal color ED Course Vital Signs 08/24/19 08/24/19 08/24/19 21:05 21:16 21:21 Temperature 97.8 F Pulse Rate 70 75 75 Pulse Rate [ Bilateral] Pulse Rate [ Left Arm] Pulse Rate [ Right Arm] Respiratory 20 24 Rate Respiratory Rate [Bilateral ] Respiratory Rate [Left Arm] Respiratory Rate [Right Arm ] Blood Pressure 164/72 163/80 155/76 Blood Pressure [Left Arm] Blood Pressure [Right Arm] Blood Pressure [Right] O2 Sat by Pulse 99 98 Oximetry O2 Sat by Pulse Oximetry [Left Arm] O2 Sat by Pulse Oximetry [ Right Arm] 08/24/19 08/24/19 08/24/19 21:25 21:30 21:45 Temperature Pulse Rate 74 72 71 Pulse Rate [ Bilateral] Pulse Rate [ Left Arm] Pulse Rate [ Right Arm] Respiratory 22 23 Rate Respiratory Rate [Bilateral ] Respiratory Rate [Left Arm] Respiratory Rate [Right Arm ] Blood Pressure 155/76 156/71 150/81 Blood Pressure [Left Arm] Blood Pressure [Right Arm] Blood Pressure [Right] O2 Sat by Pulse 96 95 Oximetry O2 Sat by Pulse Oximetry [Left Arm] O2 Sat by Pulse Oximetry [ Right Arm] 08/24/19 08/24/19 08/24/19 22:00 22:15 22:30 Temperature 97.9 F Pulse Rate 76 73 89 Pulse Rate [ Bilateral] Pulse Rate [ Left Arm] Pulse Rate [ Right Arm] Respiratory 26 H 25 H 20 Rate Respiratory Rate [Bilateral ] Respiratory Rate [Left Arm] Respiratory Rate [Right Arm ] Blood Pressure 149/77 162/75 151/73 Blood Pressure [Left Arm] Blood Pressure [Right Arm] Blood Pressure [Right] O2 Sat by Pulse 97 96 97 Oximetry O2 Sat by Pulse Oximetry [Left Arm] O2 Sat by Pulse Oximetry [ Right Arm] 08/24/19 08/24/19 08/24/19 22:46 23:00 23:16 Temperature Pulse Rate 79 76 75 Pulse Rate [ Bilateral] Pulse Rate [ Left Arm] Pulse Rate [ Right Arm] Respiratory 26 H 24 20 Rate Respiratory Rate [Bilateral ] Respiratory Rate [Left Arm] Respiratory Rate [Right Arm ] Blood Pressure 135/75 146/78 153/72 Blood Pressure [Left Arm] Blood Pressure [Right Arm] Blood Pressure [Right] O2 Sat by Pulse 97 96 95 Oximetry O2 Sat by Pulse Oximetry [Left Arm] O2 Sat by Pulse Oximetry [ Right Arm] 08/24/19 08/24/19 08/25/19 23:30 23:46 00:00 Temperature 98.1 F Pulse Rate 73 85 73 Pulse Rate [ Bilateral] Pulse Rate [ Left Arm] Pulse Rate [ Right Arm] Respiratory 23 19 23 Rate Respiratory Rate [Bilateral ] Respiratory Rate [Left Arm] Respiratory Rate [Right Arm ] Blood Pressure 151/76 151/76 140/97 Blood Pressure [Left Arm] Blood Pressure [Right Arm] Blood Pressure [Right] O2 Sat by Pulse 95 99 97 Oximetry O2 Sat by Pulse Oximetry [Left Arm] O2 Sat by Pulse Oximetry [ Right Arm] 08/25/19 08/25/19 08/25/19 00:04 00:16 00:30 Temperature Pulse Rate 78 73 77 Pulse Rate [ Bilateral] Pulse Rate [ Left Arm] Pulse Rate [ Right Arm] Respiratory 24 23 23 Rate Respiratory Rate [Bilateral ] Respiratory Rate [Left Arm] Respiratory Rate [Right Arm ] Blood Pressure 141/76 136/75 136/75 Blood Pressure [Left Arm] Blood Pressure [Right Arm] Blood Pressure [Right] O2 Sat by Pulse 97 97 99 Oximetry O2 Sat by Pulse Oximetry [Left Arm] O2 Sat by Pulse Oximetry [ Right Arm] 08/25/19 08/25/19 08/25/19 00:45 01:00 01:16 Temperature Pulse Rate 77 86 75 Pulse Rate [ Bilateral] Pulse Rate [ Left Arm] Pulse Rate [ Right Arm] Respiratory 24 28 H 21 Rate Respiratory Rate [Bilateral ] Respiratory Rate [Left Arm] Respiratory Rate [Right Arm ] Blood Pressure 130/78 130/78 146/68 Blood Pressure [Left Arm] Blood Pressure [Right Arm] Blood Pressure [Right] O2 Sat by Pulse 94 97 95 Oximetry O2 Sat by Pulse Oximetry [Left Arm] O2 Sat by Pulse Oximetry [ Right Arm] 08/25/19 08/25/19 08/25/19 01:30 01:45 02:00 Temperature 97.9 F Pulse Rate 76 71 72 Pulse Rate [ Bilateral] Pulse Rate [ Left Arm] Pulse Rate [ Right Arm] Respiratory 20 21 19 Rate Respiratory Rate [Bilateral ] Respiratory Rate [Left Arm] Respiratory Rate [Right Arm ] Blood Pressure 135/78 144/74 155/84 Blood Pressure [Left Arm] Blood Pressure [Right Arm] Blood Pressure [Right] O2 Sat by Pulse 95 96 96 Oximetry O2 Sat by Pulse Oximetry [Left Arm] O2 Sat by Pulse Oximetry [ Right Arm] 08/25/19 08/25/19 08/25/19 02:15 02:31 02:45 Temperature Pulse Rate 78 79 75 Pulse Rate [ Bilateral] Pulse Rate [ Left Arm] Pulse Rate [ Right Arm] Respiratory 24 14 21 Rate Respiratory Rate [Bilateral ] Respiratory Rate [Left Arm] Respiratory Rate [Right Arm ] Blood Pressure 141/71 155/74 146/76 Blood Pressure [Left Arm] Blood Pressure [Right Arm] Blood Pressure [Right] O2 Sat by Pulse 96 97 95 Oximetry O2 Sat by Pulse Oximetry [Left Arm] O2 Sat by Pulse Oximetry [ Right Arm] 08/25/19 08/25/19 08/25/19 03:00 03:15 03:30 Temperature Pulse Rate 75 75 75 Pulse Rate [ Bilateral] Pulse Rate [ Left Arm] Pulse Rate [ Right Arm] Respiratory 22 20 19 Rate Respiratory Rate [Bilateral ] Respiratory Rate [Left Arm] Respiratory Rate [Right Arm ] Blood Pressure 150/78 144/76 144/76 Blood Pressure [Left Arm] Blood Pressure [Right Arm] Blood Pressure [Right] O2 Sat by Pulse 96 97 95 Oximetry O2 Sat by Pulse Oximetry [Left Arm] O2 Sat by Pulse Oximetry [ Right Arm] 08/25/19 08/25/19 08/25/19 03:45 04:00 04:01 Temperature 97.8 F Pulse Rate 79 89 Pulse Rate [ Bilateral] Pulse Rate [ Left Arm] Pulse Rate [ Right Arm] Respiratory 17 21 Rate Respiratory Rate [Bilateral ] Respiratory Rate [Left Arm] Respiratory Rate [Right Arm ] Blood Pressure 152/84 152/84 Blood Pressure [Left Arm] Blood Pressure [Right Arm] Blood Pressure [Right] O2 Sat by Pulse 96 96 Oximetry O2 Sat by Pulse Oximetry [Left Arm] O2 Sat by Pulse Oximetry [ Right Arm] 08/25/19 08/25/19 08/25/19 04:15 04:31 04:45 Temperature Pulse Rate 74 82 73 Pulse Rate [ Bilateral] Pulse Rate [ Left Arm] Pulse Rate [ Right Arm] Respiratory 21 26 H 21 Rate Respiratory Rate [Bilateral ] Respiratory Rate [Left Arm] Respiratory Rate [Right Arm ] Blood Pressure 162/79 141/75 141/75 Blood Pressure [Left Arm] Blood Pressure [Right Arm] Blood Pressure [Right] O2 Sat by Pulse 97 97 97 Oximetry O2 Sat by Pulse Oximetry [Left Arm] O2 Sat by Pulse Oximetry [ Right Arm] 08/25/19 08/25/19 08/25/19 05:00 05:15 05:30 Temperature Pulse Rate 74 77 73 Pulse Rate [ Bilateral] Pulse Rate [ Left Arm] Pulse Rate [ Right Arm] Respiratory 21 20 20 Rate Respiratory Rate [Bilateral ] Respiratory Rate [Left Arm] Respiratory Rate [Right Arm ] Blood Pressure 155/70 155/70 155/70 Blood Pressure [Left Arm] Blood Pressure [Right Arm] Blood Pressure [Right] O2 Sat by Pulse 95 95 96 Oximetry O2 Sat by Pulse Oximetry [Left Arm] O2 Sat by Pulse Oximetry [ Right Arm] 08/25/19 08/25/19 08/25/19 05:45 06:00 06:15 Temperature Pulse Rate 75 72 76 Pulse Rate [ Bilateral] Pulse Rate [ Left Arm] Pulse Rate [ Right Arm] Respiratory 21 19 23 Rate Respiratory Rate [Bilateral ] Respiratory Rate [Left Arm] Respiratory Rate [Right Arm ] Blood Pressure 155/70 158/73 158/73 Blood Pressure [Left Arm] Blood Pressure [Right Arm] Blood Pressure [Right] O2 Sat by Pulse 94 96 95 Oximetry O2 Sat by Pulse Oximetry [Left Arm] O2 Sat by Pulse Oximetry [ Right Arm] 08/25/19 08/25/19 08/25/19 06:30 07:00 07:20 Temperature 97.6 F Pulse Rate 74 77 82 Pulse Rate [ Bilateral] Pulse Rate [ 82 Left Arm] Pulse Rate [ 82 Right Arm] Respiratory 19 19 16 Rate Respiratory Rate [Bilateral ] Respiratory 16 Rate [Left Arm] Respiratory 16 Rate [Right Arm ] Blood Pressure 152/78 147/72 Blood Pressure 147/72 [Left Arm] Blood Pressure 147/72 [Right Arm] Blood Pressure 147/72 [Right] O2 Sat by Pulse 95 95 100 Oximetry O2 Sat by Pulse 100 Oximetry [Left Arm] O2 Sat by Pulse 98 Oximetry [ Right Arm] 08/25/19 08/25/19 08/25/19 07:30 08:00 08:30 Temperature Pulse Rate 78 74 75 Pulse Rate [ Bilateral] Pulse Rate [ 82 Left Arm] Pulse Rate [ 82 Right Arm] Respiratory 24 21 22 Rate Respiratory Rate [Bilateral ] Respiratory 16 Rate [Left Arm] Respiratory 16 Rate [Right Arm ] Blood Pressure 160/73 155/69 155/78 Blood Pressure 155/69 [Left Arm] Blood Pressure 155/69 [Right Arm] Blood Pressure [Right] O2 Sat by Pulse 97 95 95 Oximetry O2 Sat by Pulse 100 Oximetry [Left Arm] O2 Sat by Pulse 100 Oximetry [ Right Arm] 08/25/19 08/25/19 08/25/19 09:00 09:26 09:30 Temperature 97.6 F Pulse Rate 76 80 Pulse Rate [ Bilateral] Pulse Rate [ 80 Left Arm] Pulse Rate [ 80 Right Arm] Respiratory 20 12 Rate Respiratory Rate [Bilateral ] Respiratory 16 Rate [Left Arm] Respiratory 16 Rate [Right Arm ] Blood Pressure 167/87 156/82 Blood Pressure 167/87 [Left Arm] Blood Pressure 167/87 [Right Arm] Blood Pressure [Right] O2 Sat by Pulse 96 97 Oximetry O2 Sat by Pulse 100 Oximetry [Left Arm] O2 Sat by Pulse 100 Oximetry [ Right Arm] 08/25/19 08/25/19 08/25/19 09:37 10:00 10:30 Temperature Pulse Rate 85 80 Pulse Rate [ 80 Bilateral] Pulse Rate [ 86 Left Arm] Pulse Rate [ 86 Right Arm] Respiratory 22 23 Rate Respiratory 18 Rate [Bilateral ] Respiratory 14 Rate [Left Arm] Respiratory 14 Rate [Right Arm ] Blood Pressure 147/83 162/78 Blood Pressure 147/83 [Left Arm] Blood Pressure 147/83 [Right Arm] Blood Pressure [Right] O2 Sat by Pulse 96 95 Oximetry O2 Sat by Pulse 100 Oximetry [Left Arm] O2 Sat by Pulse 100 Oximetry [ Right Arm] 08/25/19 08/25/19 08/25/19 11:00 12:33 12:37 Temperature 98 F Pulse Rate 87 130 H Pulse Rate [ Bilateral] Pulse Rate [ 80 79 Left Arm] Pulse Rate [ Right Arm] Respiratory 24 25 H Rate Respiratory Rate [Bilateral ] Respiratory 16 16 Rate [Left Arm] Respiratory Rate [Right Arm ] Blood Pressure 156/79 147/83 Blood Pressure 156/79 172/85 [Left Arm] Blood Pressure [Right Arm] Blood Pressure [Right] O2 Sat by Pulse 95 Oximetry O2 Sat by Pulse 100 100 Oximetry [Left Arm] O2 Sat by Pulse Oximetry [ Right Arm] 08/25/19 08/25/19 08/25/19 13:00 13:30 14:00 Temperature Pulse Rate 81 90 92 H Pulse Rate [ Bilateral] Pulse Rate [ 80 90 Left Arm] Pulse Rate [ Right Arm] Respiratory 19 22 21 Rate Respiratory Rate [Bilateral ] Respiratory 16 16 Rate [Left Arm] Respiratory Rate [Right Arm ] Blood Pressure 162/80 162/83 137/79 Blood Pressure 162/80 137/79 [Left Arm] Blood Pressure [Right Arm] Blood Pressure [Right] O2 Sat by Pulse 97 93 96 Oximetry O2 Sat by Pulse 100 100 Oximetry [Left Arm] O2 Sat by Pulse Oximetry [ Right Arm] 08/25/19 08/25/19 08/25/19 14:20 14:30 15:00 Temperature 97.8 F Pulse Rate 86 82 Pulse Rate [ Bilateral] Pulse Rate [ 78 Left Arm] Pulse Rate [ Right Arm] Respiratory 16 22 Rate Respiratory Rate [Bilateral ] Respiratory 16 Rate [Left Arm] Respiratory Rate [Right Arm ] Blood Pressure 141/71 139/70 Blood Pressure 139/70 [Left Arm] Blood Pressure [Right Arm] Blood Pressure [Right] O2 Sat by Pulse 96 94 Oximetry O2 Sat by Pulse 100 Oximetry [Left Arm] O2 Sat by Pulse Oximetry [ Right Arm] 08/25/19 08/25/19 08/25/19 15:30 16:00 16:30 Temperature Pulse Rate 86 79 79 Pulse Rate [ Bilateral] Pulse Rate [ 78 Left Arm] Pulse Rate [ Right Arm] Respiratory 22 19 20 Rate Respiratory Rate [Bilateral ] Respiratory 18 Rate [Left Arm] Respiratory Rate [Right Arm ] Blood Pressure 155/75 151/72 151/77 Blood Pressure 151/72 [Left Arm] Blood Pressure [Right Arm] Blood Pressure [Right] O2 Sat by Pulse 96 97 97 Oximetry O2 Sat by Pulse 100 Oximetry [Left Arm] O2 Sat by Pulse Oximetry [ Right Arm] 08/25/19 08/25/19 08/25/19 17:00 17:31 18:00 Temperature 98.3 F Pulse Rate 78 82 79 Pulse Rate [ Bilateral] Pulse Rate [ 78 78 Left Arm] Pulse Rate [ Right Arm] Respiratory 29 H 23 23 Rate Respiratory Rate [Bilateral ] Respiratory 16 16 Rate [Left Arm] Respiratory Rate [Right Arm ] Blood Pressure 149/75 151/77 169/73 Blood Pressure 149/75 169/73 [Left Arm] Blood Pressure [Right Arm] Blood Pressure [Right] O2 Sat by Pulse 95 98 94 Oximetry O2 Sat by Pulse 100 100 Oximetry [Left Arm] O2 Sat by Pulse Oximetry [ Right Arm] 08/25/19 08/25/19 08/25/19 18:30 19:00 19:30 Temperature Pulse Rate 82 91 H 86 Pulse Rate [ Bilateral] Pulse Rate [ 92 H Left Arm] Pulse Rate [ Right Arm] Respiratory 22 25 H 24 Rate Respiratory Rate [Bilateral ] Respiratory 16 Rate [Left Arm] Respiratory Rate [Right Arm ] Blood Pressure 165/75 162/80 157/87 Blood Pressure 162/80 [Left Arm] Blood Pressure [Right Arm] Blood Pressure [Right] O2 Sat by Pulse 94 95 97 Oximetry O2 Sat by Pulse 98 Oximetry [Left Arm] O2 Sat by Pulse Oximetry [ Right Arm] 08/25/19 08/25/19 08/25/19 20:00 20:30 21:00 Temperature Pulse Rate 90 86 87 Pulse Rate [ Bilateral] Pulse Rate [ Left Arm] Pulse Rate [ Right Arm] Respiratory 19 19 18 Rate Respiratory Rate [Bilateral ] Respiratory Rate [Left Arm] Respiratory Rate [Right Arm ] Blood Pressure 158/81 156/87 158/81 Blood Pressure [Left Arm] Blood Pressure [Right Arm] Blood Pressure [Right] O2 Sat by Pulse 96 95 96 Oximetry O2 Sat by Pulse Oximetry [Left Arm] O2 Sat by Pulse Oximetry [ Right Arm] 08/25/19 08/25/19 08/25/19 21:30 22:00 22:30 Temperature Pulse Rate 80 85 83 Pulse Rate [ Bilateral] Pulse Rate [ Left Arm] Pulse Rate [ Right Arm] Respiratory 15 18 19 Rate Respiratory Rate [Bilateral ] Respiratory Rate [Left Arm] Respiratory Rate [Right Arm ] Blood Pressure 162/76 168/78 162/76 Blood Pressure [Left Arm] Blood Pressure [Right Arm] Blood Pressure [Right] O2 Sat by Pulse 94 93 96 Oximetry O2 Sat by Pulse Oximetry [Left Arm] O2 Sat by Pulse Oximetry [ Right Arm] 08/25/19 08/25/19 08/25/19 23:00 23:04 23:18 Temperature Pulse Rate 82 82 Pulse Rate [ 82 Bilateral] Pulse Rate [ Left Arm] Pulse Rate [ Right Arm] Respiratory 24 11 L Rate Respiratory 24 Rate [Bilateral ] Respiratory Rate [Left Arm] Respiratory Rate [Right Arm ] Blood Pressure 156/75 156/75 Blood Pressure [Left Arm] Blood Pressure [Right Arm] Blood Pressure [Right] O2 Sat by Pulse 92 98 Oximetry O2 Sat by Pulse Oximetry [Left Arm] O2 Sat by Pulse Oximetry [ Right Arm] 08/25/19 08/25/19 08/25/19 23:20 23:30 23:40 Temperature Pulse Rate 81 83 86 Pulse Rate [ Bilateral] Pulse Rate [ Left Arm] Pulse Rate [ Right Arm] Respiratory 9 L 24 26 H Rate Respiratory Rate [Bilateral ] Respiratory Rate [Left Arm] Respiratory Rate [Right Arm ] Blood Pressure 156/75 149/72 149/72 Blood Pressure [Left Arm] Blood Pressure [Right Arm] Blood Pressure [Right] O2 Sat by Pulse 98 94 95 Oximetry O2 Sat by Pulse Oximetry [Left Arm] O2 Sat by Pulse Oximetry [ Right Arm] 08/25/19 23:50 Temperature Pulse Rate 84 Pulse Rate [ Bilateral] Pulse Rate [ Left Arm] Pulse Rate [ Right Arm] Respiratory 17 Rate Respiratory Rate [Bilateral ] Respiratory Rate [Left Arm] Respiratory Rate [Right Arm ] Blood Pressure 149/72 Blood Pressure [Left Arm] Blood Pressure [Right Arm] Blood Pressure [Right] O2 Sat by Pulse 96 Oximetry O2 Sat by Pulse Oximetry [Left Arm] O2 Sat by Pulse Oximetry [ Right Arm] - Reevaluation(s) Reevaluation #1: 08/24/19 22:04 Patient reexamined by me. Patient stated that he is feeling better and he feel his left leg is not heavier as previously. Patient is able to lift his left leg. Patient denying any headache. - Lab Data Result diagrams: 08/25/19 04:26 08/25/19 04:26 Lab Results 08/24/19 08/24/19 08/24/19 Range/Units 20:58 21:10 21:10 WBC 5.7 (4.5-11.0) K/mm3 RBC 4.18 (3.65-5.03) M/mm3 Hgb 11.5 L (11.8-15.2) gm/dl Hct 35.3 L (35.5-45.6) % MCV 85 (84-94) fl MCH 28 (28-32) pg MCHC 33 (32-34) % RDW 16.3 H (13.2-15.2) % Plt Count 163 (140-440) K/mm3 Lymph % (Auto) 38.1 H (13.4-35.0) % Maury % (Auto) 12.6 H (0.0-7.3) % Eos % (Auto) 9.1 H (0.0-4.3) % Baso % (Auto) 2.0 H (0.0-1.8) % Lymph # 2.2 (1.2-5.4) K/mm3 Maury # 0.7 (0.0-0.8) K/mm3 Eos # 0.5 H (0.0-0.4) K/mm3 Baso # 0.1 (0.0-0.1) K/mm3 Seg Neutrophils % 38.2 L (40.0-70.0) % Seg Neutrophils # 2.2 (1.8-7.7) K/mm3 PT 13.1 (12.2-14.9) Sec. INR 1.00 (0.87-1.13) APTT 37.9 H (24.2-36.6) Sec. Thrombin Time 16.1 (15.1-19.6) Sec. Sodium (137-145) mmol/L Potassium (3.6-5.0) mmol/L Chloride (98-107) mmol/L Carbon Dioxide (22-30) mmol/L Anion Gap mmol/L BUN (9-20) mg/dL Creatinine (0.8-1.5) mg/dL Estimated GFR ml/min BUN/Creatinine Ratio % Glucose (75-100) mg/dL POC Glucose 226 H (70-105) Calcium (8.4-10.2) mg/dL Total Bilirubin (0.1-1.2) mg/dL Direct Bilirubin (0-0.2) mg/dL Indirect Bilirubin mg/dL AST (5-40) units/L ALT (7-56) units/L Alkaline Phosphatase (35-129) units/L Total Creatine Kinase (55-170) units/L CK-MB (CK-2) (0.0-4.0) ng/mL CK-MB (CK-2) Rel Index (0-4) Troponin T (0.00-0.029) ng/mL Total Protein (6.3-8.2) g/dL Albumin (3.9-5) g/dL Albumin/Globulin Ratio % 11/18/19 11/18/19 Range/Units 21:10 21:10 WBC (4.5-11.0) K/mm3 RBC (3.65-5.03) M/mm3 Hgb (11.8-15.2) gm/dl Hct (35.5-45.6) % MCV (84-94) fl MCH (28-32) pg MCHC (32-34) % RDW (13.2-15.2) % Plt Count (140-440) K/mm3 Lymph % (Auto) (13.4-35.0) % Maury % (Auto) (0.0-7.3) % Eos % (Auto) (0.0-4.3) % Baso % (Auto) (0.0-1.8) % Lymph # (1.2-5.4) K/mm3 Maury # (0.0-0.8) K/mm3 Eos # (0.0-0.4) K/mm3 Baso # (0.0-0.1) K/mm3 Seg Neutrophils % (40.0-70.0) % Seg Neutrophils # (1.8-7.7) K/mm3 PT (12.2-14.9) Sec. INR (0.87-1.13) APTT (24.2-36.6) Sec. Thrombin Time (15.1-19.6) Sec. Sodium 134 L (137-145) mmol/L Potassium 4.2 (3.6-5.0) mmol/L Chloride 98.2 (98-107) mmol/L Carbon Dioxide 21 L (22-30) mmol/L Anion Gap 19 mmol/L BUN 10 (9-20) mg/dL Creatinine 0.8 (0.8-1.5) mg/dL Estimated GFR > 60 ml/min BUN/Creatinine Ratio 13 % Glucose 205 H (75-100) mg/dL POC Glucose (70-105) Calcium 8.9 (8.4-10.2) mg/dL Total Bilirubin 0.30 (0.1-1.2) mg/dL Direct Bilirubin < 0.2 (0-0.2) mg/dL Indirect Bilirubin 0.1 mg/dL AST 28 (5-40) units/L ALT 20 (7-56) units/L Alkaline Phosphatase 84 (35-129) units/L Total Creatine Kinase 105 (55-170) units/L CK-MB (CK-2) 2.4 (0.0-4.0) ng/mL CK-MB (CK-2) Rel Index 2.2 (0-4) Troponin T < 0.010 (0.00-0.029) ng/mL Total Protein 7.4 (6.3-8.2) g/dL Albumin 4.2 (3.9-5) g/dL Albumin/Globulin Ratio 1.3 % - EKG Data -: EKG Interpreted by Me EKG shows normal: sinus rhythm Rate: normal Interpretation: no acute changes - Radiology Data Radiology results: report reviewed - Medical Decision Making Patient is 79 years old male with history of hypertension, diabetes, CABG, TIA. Patient brought to the emergency room via EMS for evaluation of sudden onset of body spasm. Patient stated that his symptoms started around 7:00 tonight. Patient stated that he started having weakness in his lower extremities mainly to the left side. Patient stated that he started dragging his leg. Patient denied any difficulty speaking. Patient also denied any headache. Stroke protocol immediately initiated. Patient evaluated by from stroke telemetry neurology. He advised that patient is a TPA candidate. Patient received TPA with no complication. Is cussed the patient is Dr. Aleah Mendieta, she agreed to admit the patient to medical service. Critical Care Time: Yes Critical care time in (mins) excluding proc time.: 30 Critical care attestation.: If time is entered above; I have spent that time in minutes in the direct care of this critically ill patient, excluding procedure time. ED Disposition Clinical Impression: Stroke Disposition: DC-[id number] OP ADMIT IP TO THIS HOSP Is pt being admited?: Yes Condition: Stable
[2019-08-24] MEDS ORDERED: SODIUM CHLORIDE 0.9% 50 ML IVPB IV ONE (21:10)
[2019-08-24] MEDS ORDERED: ALTEPLASE 100 MG INJ KIT IV ONE ×2 (21:10)
--- NOTE | 2019-08-24 21:18 | Cat Scan Report ---
CT HEAD WITHOUT CONTRAST INDICATION / CLINICAL INFORMATION: Stroke symptoms. Lower extremity weakness. TECHNIQUE: All CT scans at this location are performed using CT dose reduction for ALARA by means of automated e xposure control. COMPARISON: None available. FINDINGS: HEMORRHAGE: No evidence of intracranial hemorrhage or extra-axial fluid collection. EXTRA-AXIAL SPACES: Cortical sulci and sylvian fissures are within normal limits in size for the gutierrez ent's age 79 years. Basilar cisterns have an unremarkable appearance. VENTRICULAR SYSTEM: The third and lateral ventricles are normal in size and configuration. CEREBRAL PARENCHYMA: Periventricular and deep white matter lucency is observed. This is probably seco ndary to microvascular ischemic change. There is no indication of recent infarction. No areas of ence phalomalacia are identified. MIDLINE SHIFT OR HERNIATION: There is no mass effect. CEREBELLUM / BRAINSTEM: Brainstem has an unremarkable appearance. An area of decreased attenuation in the posterior inferior aspect of the left cerebellar hemisphere likely represents the sequelae of re mote left cerebellar infarction. INTRACRANIAL VESSELS:Calcified atherosclerotic plaque is present along the course of the cavernous se gments of both internal carotid arteries. Similar findings are seen at the distal vertebral arteries. ORBITS: visualized portions of the orbits have an unremarkable appearance. SOFT TISSUES of HEAD: No significant abnormality. CALVARIUM: Evaluation of bone windows reveals no abnormalities. PARANASAL SINUSES / MASTOID AIR CELLS: Evaluation of the sinonasal cavity is remarkable for the prese nce of opacification of the maxillary sinuses, the sphenoid sinuses, both frontal sinuses and multipl e ethmoid air cells consistent with pansinusitis. 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 Mastoid air cells are free from inflammatory mucosal disease. IMPRESSION: 1. Evidence of remote left cerebellar infarction. 2. No acute intracranial abnormality. 3. Pansinusitis. Code stroke patient: I called a report of this study to Dr. Jimenez of the [facility] emergency depar tment at about 2000 hours (Central standard time). Signer Name: Michael Bernard MD Signed: 08/24/2019 9:14 PM Workstation Name: [id number]
--- NOTE | 2019-08-24 21:28 | Emergency Department Report ---
ED Neuro Deficit HPI - General Chief Complaint: Weakness Stated Complaint: TINGLING IN FINGERS/DIFF WALKING Time Seen by Provider: 08/24/19 20:48 Source: patient - History of Present Illness Initial Comments: [facility] Consult Services TeleStroke Metrics: LKW: 1900 Door Time: 2025 [facility] Contacted: 2048 [facility] at Bedside: 2051 NIHSS (assessment time): 2101 Interventional Candidate: Not a candidate as his symptoms are not consistent with a large vessel proximal occlusion. Chief Complaint: Gait abnormality with left leg weakness HPI: Asked to see this patient in emergent telemedicine consultation utilizing interactive audio and video technologies. Consultation was performed with assistance of ancillary / medical staff at bedside. Verbal consent to perform the examination with telemedicine was obtained. Patient agreed to proceed with the consultation for acute stroke protocol. 79-year-old right-handed -Prydeinig malewho was brought to the emergency room by EMS as a stroke alert for difficulties in walking, leg weakness, and h and numbness. Patient takes a baby aspirin at baseline. Patient states that he had gotten home from his doctor and had taken a tablet for heartburn. He had finished eating something. A friend had knocked on the door, and sometime around 7 PM he tried to get up and noted trouble walking. He noted that his left leg was heavier than the right leg. He then went to the kitchen, and noted an abnormal tense feeling in his neck that radiate into his body. He also developed persistent right hand numbness and tingling and some intermittent left hand numbness and tingling. He called his daughter, who recommended him to call 911. Alteplase (tPA) Administration: Risk and benefit of IV Alteplase were discussed. Risk includes a 6% chance of symptomatic intracranial hemorrhage. Benefit includes an approximate 30% chance of improving at 3 months with the medication versus a 20% chance of improving at 3 months without the medication. Inclusion criteria were reviewed. Exclusion criteria were reviewed and are all negative. No recent issues with internal bleeding. No recent surgeries. Verbal Consent to Alteplase (tPA): I have explained to the patient the nature of the patients condition, the use of tPA fibrinolytic agent, and the benefits to be reasonably expected compared with alternative approaches. I have discussed the likelihood of major risks or complications of this procedure including (if applicable) but not limited to loss of limb function, brain damage, paralysis, hemorrhage, infection, complications from transfusion of blood components, drug reactions, blood clots and loss of life. I have also indicated that with any procedure there is always the possibility of an unexpected complication. I have explained the risks which include: , Stroke or permanent neurologic injury (paralysis, coma, etc) Worsening of stroke symptoms from swelling or bleeding in the brain Bleeding in other parts of the body Need for blood transfusions to replace blood or clotting factors Allergic reaction to medications Other unexpected complications All questions were answered and the patient expressed understanding of the treatment plan and consented to the procedure. Verbal Consent/Order: 2107 Alteplase Ordered: 2111 Alteplase Total Dose: 81.5 mg (weight 90.6 kg) Alteplase IV Bolus Dose: 8.1 mg given at 2120 Alteplase IV Infusion Dose: 73.4 mg started thereafter Vial of Alteplase was visually confirmed by myself. Dosing of IV Alteplase was reviewed by myself and with the ER nurse prior to Alteplase administration. Blood pressure Pre-Alteplase Administration: 163/80 at 2108 PMH: Hypertension, diabetes mellitus, prior TIA, GERD, and coronary artery disease status post CABG and coronary stent SOC: Negative x2. Patient drinks occasional alcohol. He lives alone. FMH: Mother might of had a stroke before. She also had hypertension. ROS: 13 point review of systems were reviewed with the patient, and are all negative with the exception of the aforementioned in the history of present illness. VS: Blood pressure 162/74, pulse 79, respiration 20, oxygen saturation 96% Exam: Patient is in no apparent distress. Patient appears as stated age. No obvious acute respiratory or cardiac distress. Patient is well groomed and well-nourished. 1a- LOC: Keenly responsive - 0 1b- LOC questions: Answers both questions correctly - 0 1c- LOC commands- Performs both tasks correctly- 0 2- Gaze: Normal; no gaze paresis or gaze deviation - 0 3- Visual Richey: normal, no Visual field deficit - 0 4- Facial movements: left facial palsy - 1 5- Upper limb motor - no drift - 0 6- Lower limb motor left leg drift - 1 7- Limb Coordination: absent ataxia - 0 8- Sensory: right greater than left hand sensory loss - 1 9- Language - No aphasia - 0 10- Speech - No dysarthria -0 11- Neglect / Extinction - none found - 0 NIHSS score: 3 Diagnostic Data: CT showed no acute intracranial hemorrhage. No acute stroke or mass. There is an old left cerebellar stroke. Blood glucose 270 Medical Data Reviewed: 1.Data?reviewed include clinical labs, radiology,?and medical tests; 2.Tests?results discussed w/performing or interpreting physician; 3.Obtaining/reviewing old medical records; 4.Obtaining?case history from another source; 5.Independent?review of image, tracing, or specimen. Medical Decision Making: - Extensive number of diagnosis or management options are considered below. - Extensive amount of complex data reviewed. - High risk of complication and/or morbidity or mortality are associated with differential diagnostic considerations below. - There may be?uncertain?outcome and increased probability of prolonged functional impairment or high probability of severe prolonged functional impairment associated with some of these differential diagnosis. Differential Diagnosis for Stroke: 1.?Cardioembolic?stroke 2. Small vessel disease/lacune 3. Thromboembolic, guulav-yx-oqgkcc mechanism 4.?Hypercoagulable?state-related infarct 5. Transient ischemic attack 6. Thrombotic mechanism, large artery disease Assessment: 1. Possible right hemisphere stroke status post IV alteplase 2. Prior left cerebellar stroke 3. Hypertension 4. Diabetes mellitus 5. GERD 6. Coronary artery disease status post CABG and coronary stents Recommendations: Patient should be admitted to the inpatient hospitalist service and be monitored in the ICU. Monitor and document vital signs/blood pressure with neuro checks/NIHSS for the first 24 hours after receiving IV Alteplase using the following parameters: -Check every 15 minutes for 2 hours following IV Alteplase administration -Then check every 30 minutes for 6 hours -Then check every 1 hour for 16 hours Allow permissive hypertension. If SBP > 180 or DBP > 105 on 2 consecutive checks, then administer PRN IV anti- hypertensive medication (Labetalol 10-20 mg IV over 1-2 minutes or start Nicardipine drip at 5 mg/hr and can titrate up every 2.5 mg/hr until parameters are achieved) and notify MD. No anti-platelets or Lovenox for 24 hours s/p IV Alteplase per protocol. Place SCDs for DVT prevention. Repeat head CT in 24 hours s/p IV Alteplase per protocol. Obtain STAT head CT for any new acute headache or new neurological deficits Continue telemetry monitoring to look for paroxysmal atrial fibrillation. Check echocardiogram. Check brain MRI. Check MRA of the head and neck to evaluate his intracranial and extracranial blood vessels. Can also check MRI of the cervical spine without contrast to further evaluate his neck symptoms. Consult PT, OT, and ST. Check hemoglobin A1c and lipid panel. Would recommend to consult local Neurology provider to see patient in follow-up consultation on the floor. Plan of care was discussed with the patient. Thank you for allowing [facility] to participate in the care of your patient. Please call me, Dr. Whitten, with any questions at [phone]. Case discussed with the ER staff and Dr. Jimenez. Critical Care notation: I was called to see this critical patient emergently. I personally evaluated this critical patient for acute stroke evaluation, and determining their eligibility for IV Alteplase and interventional therapies. I have spent approximately 31 minutes with the patient, including time at bedside, time discussing the case with other physicians, reviewing plan of care, and time independently reviewing the records and scans. Location: left leg History of same: No Place: home Severity: moderate - Related Data Home Medications: Home Medications Medication Instructions Recorded Confirmed Last Taken Acetaminophen [Tylenol Extra 500 mg PO Q6HR PRN 09/18/17 10/30/17 10/23/17 Strength] AtorvaSTATin [Lipitor] 40 mg PO QHS 09/18/17 10/17/17 10/29/17 Cetirizine HCl [All Day Allergy] 10 mg PO DAILY PRN 09/18/17 10/17/17 10/29/17 Pantoprazole [Protonix] 40 mg PO QDAY 09/18/17 10/17/17 10/29/17 Simethicone [Gas Relief] 125 mg PO DAILY PRN 09/18/17 10/17/17 10/29/17 metFORMIN [Glucophage] 1,000 mg PO BID 09/18/17 10/17/17 10/29/17 Fluticasone/Salmeterol (Nf) 1 puff INHALATION BID 10/17/17 10/30/17 10/30/17 10:00 [Advair 250-50 Diskus] Glimepiride [Amaryl] 1 mg PO QAM 10/17/17 10/17/17 10/29/17 Meloxicam [Mobic] 7.5 mg PO DAILY 10/17/17 10/17/17 10/29/17 Metoprolol [Lopressor] 100 mg PO BID 10/17/17 10/17/17 10/29/17 09:00 Oxybutynin [Ditropan] 5 mg PO BID 10/17/17 10/17/17 10/29/17 amLODIPine [Norvasc] 10 mg PO DAILY 10/17/17 10/17/17 10/29/17 Aspirin [Lo-Dose Aspirin EC] 81 mg PO DAILY 10/29/17 10/29/17 10/29/17 Allergies/Adverse Reactions: Allergies Allergy/AdvReac Type Severity Reaction Status Date / Time ibuprofen Allergy Severe Shortness Verified 12/05/17 15:41 of Breath aspirin Allergy GI UPSET Verified 12/05/17 15:41 ED Review of Systems ROS: Stated complaint: TINGLING IN FINGERS/DIFF WALKING Other details as noted in HPI Constitutional: denies: chills, fever Respiratory: denies: cough, shortness of breath, SOB with exertion, wheezing Cardiovascular: denies: chest pain, palpitations Gastrointestinal: denies: abdominal pain, nausea, vomiting Musculoskeletal: denies: back pain Neurological: weakness, abnormal gait. denies: headache, numbness, paresthesias, confusion, vertigo ED Past Medical Hx - Past Medical History Hx Hypertension: Yes Hx Diabetes: Yes Additional medical history: TIA - Surgical History Additional Surgical History: bypass, cardiac stents - Social History Smoking Status: Never Smoker Substance Use Type: Alcohol - Medications Home Medications: Home Medications Medication Instructions Recorded Confirmed Last Taken Type Acetaminophen [Tylenol Extra 500 mg PO Q6HR PRN 09/18/17 10/30/17 10/23/17 History Strength] AtorvaSTATin [Lipitor] 40 mg PO QHS 09/18/17 10/17/17 10/29/17 History Cetirizine HCl [All Day Allergy] 10 mg PO DAILY PRN 09/18/17 10/17/17 10/29/17 History Pantoprazole [Protonix] 40 mg PO QDAY 09/18/17 10/17/17 10/29/17 History Simethicone [Gas Relief] 125 mg PO DAILY PRN 09/18/17 10/17/17 10/29/17 History metFORMIN [Glucophage] 1,000 mg PO BID 09/18/17 10/17/17 10/29/17 History Fluticasone/Salmeterol (Nf) 1 puff INHALATION BID 10/17/17 10/30/17 10/30/17 10:00 History [Advair 250-50 Diskus] Glimepiride [Amaryl] 1 mg PO QAM 10/17/17 10/17/17 10/29/17 History Meloxicam [Mobic] 7.5 mg PO DAILY 10/17/17 10/17/17 10/29/17 History Metoprolol [Lopressor] 100 mg PO BID 10/17/17 10/17/17 10/29/17 09:00 History Oxybutynin [Ditropan] 5 mg PO BID 10/17/17 10/17/17 10/29/17 History amLODIPine [Norvasc] 10 mg PO DAILY 10/17/17 10/17/17 10/29/17 History Aspirin [Lo-Dose Aspirin EC] 81 mg PO DAILY 10/29/17 10/29/17 10/29/17 History ED Neuro Physical Exam - General General appearance: alert, in no apparent distress Suspected Stroke: Yes - NIHSS Assessment Interval: Baseline 1a. Level of Consciousness: alert/keenly responsive 1b. LOC Questions: answers both correctly 1c. LOC Commands: performs tasks correctly 2. Best Gaze: normal 3. Visual: no visual loss 4. Facial Palsy: minor paralysis 5b. Motor Arm Right: no drift 5a. Motor Arm Left: no drift 6a. Motor Leg Left: drift 6b. Motor Leg Right: no drift 7. Limb Ataxia: absent 8. Sensory: mild/moderate sensory loss 9. Best Language: no aphasia 10. Dysarthria: normal 11. Extinction/Inattention: no abnormality Total Score: 3 Stroke Severity: Minor Stroke ED Course Vital Signs 08/24/19 21:21 Pulse Rate 75 Blood Pressure 155/76 Critical care attestation.: If time is entered above; I have spent that time in minutes in the direct care of this critically ill patient, excluding procedure time. ED Disposition Clinical Impression: Stroke Disposition: OP ADMIT IP TO THIS HOSP Is pt being admited?: Yes Does the pt Need Aspirin: No Condition: Stable Referrals: PRIMARY CARE, [Primary Care Provider] - 3-5 Days
[2019-08-24 21:35] LABS: Partial Thromboplastin Time 37.9 Sec. (24.2-36.6); Thrombin Time 16.1 Sec. (15.1-19.6)
[2019-08-24 21:39] LABS: Basophils # (Auto) 0.1 K/mm3 (0.0-0.1); Eosinophils # (Auto) 0.5 K/mm3 (0.0-0.4); Eosinophils % (Auto) 9.1 % (0.0-4.3); Hematocrit 35.3 % (35.5-45.6); Hemoglobin 11.5 gm/dl (11.8-15.2); Lymphocytes # (Auto) 2.2 K/mm3 (1.2-5.4); Lymphocytes % (Auto) 38.1 % (13.4-35.0); Mean Corpuscular HGB Conc 33 % (32-34); Mean Corpuscular Volume 85 fl (84-94); Monocytes # (Auto) 0.7 K/mm3 (0.0-0.8); Monocytes % (Auto) 12.6 % (0.0-7.3); Platelet Count 163 K/mm3 (140-440); Red Blood Count 4.18 M/mm3 (3.65-5.03); Red Cell Distribution Width 16.3 % (13.2-15.2)
[2019-08-24 21:41] LABS: Creatine Kinase MB 2.4 ng/mL (0.0-4.0)
[2019-08-24 21:42] LABS: BUN/Creatinine Ratio 13; Blood Urea Nitrogen 10 mg/dL (9-20); Calcium 8.9 mg/dL (8.4-10.2); Hemolysis Index 58
[2019-08-24 21:43] LABS: Alanine Aminotransferase 20 units/L (7-56); Albumin 4.2 g/dL (3.9-5)
[2019-08-24 21:45] LABS: Bilirubin,Direct < 0.2 mg/dL (0-0.2)
[2019-08-24] MEDS ORDERED: ONDANSETRON 4 MG/2 ML INJ IV PRN (23:07)
[2019-08-24] MEDS ORDERED: MAGNESIUM HYDROXIDE (MOM) ORAL LIQD UDC PO PRN (23:07)
[2019-08-24] MEDS ORDERED: DEXTROSE 50% IN WATER (25GM) 50 ML SYRINGE IV PRN (23:07)
[2019-08-24] MEDS ORDERED: ACETAMINOPHEN 325 MG TAB PO PRN (23:07)
[2019-08-24] MEDS ORDERED: LORATADINE (NF) 10 MG TAB PO PRN (23:16)
--- NOTE | 2019-08-24 23:16 | XRay Report ---
CHEST 1 VIEW INDICATION: MAIN: stroke at 1900 - 1930 pt started experiencing left leg weakness and heaviness after trying to a mbulate after a few hours of rest. . COMPARISON: None. FINDINGS: Support devices: None. Heart: Within normal limits. Lungs/Pleura: Right lung is clear. Mild atelectasis/scarring left base. Additional findings: None. IMPRESSION: Mild atelectasis/scarring left base. Signer Name: Horacio Post MD Signed: 08/24/2019 11:12 PM Workstation Name: [id number]
--- NOTE | 2019-08-24 23:57 | History and Physical Report ---
<REAGAN ORO - Last Filed: 08/24/19 23:53> History of Present Illness Date of examination: 08/24/19 Date of admission: 08/24/2019 Chief complaint: Left sided weakness History of present illness: 79-year-old -[place]ian male with history of hypertension, GERD, diabetes, coronary artery disease status post CABG and stents, TIA 2 who presents to [facility] ED via EMS with complaints of left-sided weakness and left hand numbness. Rahel ent states that approximately 7 PM this evening he attempted to stand up to open the door and noticed that he had difficulty walking. Patient states that his left side of body was numb and felt "heavy like it was ". He walked to the kitchen and felt a sudden stiffness to right side of neck and jaw. The neck pain was followed by left upper extremity numbness/tingling. Patient called his daughter and told her of his symptoms, and she advised him to call 911. Denies: Nausea, emesis, diaphoresis, loss of consciousness Past History Past Medical History: CAD, diabetes, GERD, hypertension, stroke, other (TIA x2) Past Surgical History: CABG, Other (stent) Social history: , Lives alone Family history: hypertension, stroke (mother) Medications and Allergies Allergies Allergy/AdvReac Type Severity Reaction Status Date / Time ibuprofen Allergy Severe Shortness Verified 12/05/17 15:41 of Breath Home Medications Medication Instructions Recorded Confirmed Last Taken Type Acetaminophen [Tylenol Extra 500 mg PO Q6HR PRN 09/18/17 08/24/19 10/23/17 History Strength] AtorvaSTATin [Lipitor] 40 mg PO QHS 09/18/17 08/24/19 08/24/19 History Cetirizine HCl [All Day Allergy] 10 mg PO DAILY PRN 09/18/17 08/24/19 10/29/17 History Pantoprazole [Protonix] 40 mg PO QDAY 09/18/17 08/24/19 08/24/19 History Simethicone [Gas Relief] 125 mg PO DAILY PRN 09/18/17 08/24/19 10/29/17 History metFORMIN [Glucophage] 1,000 mg PO BID 09/18/17 08/24/19 08/24/19 History Fluticasone/Salmeterol (Nf) 1 puff INHALATION BID 10/17/17 08/24/19 08/24/19 History [Advair 250-50 Diskus] Metoprolol [Lopressor] 100 mg PO BID 10/17/17 08/24/19 08/24/19 History Oxybutynin [Ditropan] 5 mg PO BID 10/17/17 08/24/19 08/24/19 History amLODIPine [Norvasc] 10 mg PO DAILY 10/17/17 08/24/19 08/24/19 History Aspirin [Lo-Dose Aspirin EC] 81 mg PO DAILY 10/29/17 08/24/19 08/24/19 History Gabapentin 100 mg PO DAILY 08/24/19 08/24/19 08/24/19 History Active Meds: Active Medications Acetaminophen (Tylenol) 650 mg PO Q4H PRN PRN Reason: Pain MILD(1-3)/Fever >100.5/[facility] Arformoterol Tartrate (Brovana Nebu) 15 mcg IH Q12HRT [facility] Atorvastatin Calcium (Lipitor) 40 mg PO QHS [facility] Bisacodyl (Dulcolax) 10 mg MI QDAY PRN PRN Reason: Constipation Budesonide (Pulmicort) 0.5 mg IH Q12HRT [facility] Dextrose (D50w (25gm) Syringe) 0 ml IV Q30MIN PRN; Protocol PRN Reason: Hypoglycemia Docusate Sodium (Colace) 100 mg PO BID [facility] Gabapentin (Gabapentin) 100 mg PO DAILY [facility] Insulin Human Lispro (Humalog) 0 unit SUB-Q Q6HR [facility]; Protocol Labetalol HCl (Labetalol) 10 mg IV Q5MIN PRN PRN Reason: to maintain SBP < 180; DBP<105 Loratadine (Claritin) 10 mg PO DAILY PRN PRN Reason: Allergy Symptoms Magnesium Hydroxide (Milk Of Magnesia) 30 ml PO Q4H PRN PRN Reason: Constipation Metformin HCl (Glucophage) 1,000 mg PO BIDDIAB [facility] Ondansetron HCl (Zofran) 4 mg IV Q8H PRN PRN Reason: Nausea And Vomiting Oxybutynin Chloride (Ditropan) 5 mg PO BID [facility] Pantoprazole Sodium (Protonix) 40 mg PO QDAY [facility] Sodium Chloride (Sodium Chloride Flush Syringe 10 Ml) 10 ml IV BID [facility] Sodium Chloride (Sodium Chloride Flush Syringe 10 Ml) 10 ml IV PRN PRN PRN Reason: LINE FLUSH Review of Systems All systems: negative Neurological: weakness (left sided), parathesias (left sided), numbness (left u pper and lower extremity), tingling (left hand), other (neck/jaw tightness) Exam - Physical Exam Narrative exam: General appearance: Present: No acute distress, alert and oriented 3, well- developed, well-nourished, pleasant, older adult male - EENT Eyes: Present: PERRL, EOM intact ENT: hearing intact, normal dentition - Neck Neck: Present: supple, normal ROM - Respiratory Respiratory effort: Non-labored Respiratory: bilateral: CTA - Cardiovascular Heart rate:75 (bpm) Rhythm:SR Heart Sounds: Present: S1, S2. - Extremities Extremities: no ischemia, pulses intact - Peripheral Assessment Peripheral Pulses: within normal limits - Abdominal General gastrointestinal: soft, non-tender, normal bowel sounds, - Integumentary Integumentary: Present: warm, dry - Musculoskeletal Musculoskeletal: able to move all extremities, 5/5 motor strength in extremities x4 -Neurological Neurological: CN II-XII grossly intact - Psychiatric Psychiatric: cooperative - Constitutional Vitals: Temp Pulse Resp BP Pulse Ox 97.9 F 75 20 153/72 95 08/24/19 22:00 08/24/19 23:16 08/24/19 23:16 08/24/19 23:16 08/24/19 23:16 Results - Labs CBC & Chem 7: 08/24/19 21:10 08/24/19 21:10 Labs: Laboratory Last Values WBC 5.7 K/mm3 (4.5-11.0) 08/24/19 21:10 RBC 4.18 M/mm3 (3.65-5.03) 08/24/19 21:10 Hgb 11.5 gm/dl (11.8-15.2) L 08/24/19 21:10 Hct 35.3 % (35.5-45.6) L 08/24/19 21:10 MCV 85 fl (84-94) 08/24/19 21:10 MCH 28 pg (28-32) 08/24/19 21:10 MCHC 33 % (32-34) 08/24/19 21:10 RDW 16.3 % (13.2-15.2) H 08/24/19 21:10 Plt Count 163 K/mm3 (140-440) 08/24/19 21:10 Lymph % (Auto) 38.1 % (13.4-35.0) H 08/24/19 21:10 [place] % (Auto) 12.6 % (0.0-7.3) H 08/24/19 21:10 Eos % (Auto) 9.1 % (0.0-4.3) H 08/24/19 21:10 Baso % (Auto) 2.0 % (0.0-1.8) H 08/24/19 21:10 Lymph # 2.2 K/mm3 (1.2-5.4) 08/24/19 21:10 [place] # 0.7 K/mm3 (0.0-0.8) 08/24/19 21:10 Eos # 0.5 K/mm3 (0.0-0.4) H 08/24/19 21:10 Baso # 0.1 K/mm3 (0.0-0.1) 08/24/19 21:10 Seg Neutrophils % 38.2 % (40.0-70.0) L 08/24/19 21:10 Seg Neutrophils # 2.2 K/mm3 (1.8-7.7) 08/24/19 21:10 PT 13.1 Sec. (12.2-14.9) 08/24/19 21:10 INR 1.00 (0.87-1.13) 08/24/19 21:10 APTT 37.9 Sec. (24.2-36.6) H 08/24/19 21:10 Thrombin Time 16.1 Sec. (15.1-19.6) 08/24/19 21:10 Sodium 134 mmol/L (137-145) L 08/24/19 21:10 Potassium 4.2 mmol/L (3.6-5.0) 08/24/19 21:10 Chloride 98.2 mmol/L (98-107) 08/24/19 21:10 Carbon Dioxide 21 mmol/L (22-30) L 08/24/19 21:10 Anion Gap 19 mmol/L 08/24/19 21:10 BUN 10 mg/dL (9-20) 08/24/19 21:10 Creatinine 0.8 mg/dL (0.8-1.5) 08/24/19 21:10 Estimated GFR > 60 ml/min 08/24/19 21:10 BUN/Creatinine Ratio 13 % 08/24/19 21:10 Glucose 205 mg/dL (75-100) H 08/24/19 21:10 POC Glucose 226 (70-105) H 08/24/19 20:58 Calcium 8.9 mg/dL (8.4-10.2) 08/24/19 21:10 Total Bilirubin 0.30 mg/dL (0.1-1.2) 08/24/19 21:10 Direct Bilirubin < 0.2 mg/dL (0-0.2) 08/24/19 21:10 Indirect Bilirubin 0.1 mg/dL 08/24/19 21:10 AST 28 units/L (5-40) 08/24/19 21:10 ALT 20 units/L (7-56) 08/24/19 21:10 Alkaline Phosphatase 84 units/L (35-129) 08/24/19 21:10 Total Creatine Kinase 105 units/L (55-170) 08/24/19 21:10 CK-MB (CK-2) 2.4 ng/mL (0.0-4.0) 08/24/19 21:10 CK-MB (CK-2) Rel Index 2.2 (0-4) 08/24/19 21:10 Troponin T < 0.010 ng/mL (0.00-0.029) 08/24/19 21:10 Total Protein 7.4 g/dL (6.3-8.2) 08/24/19 21:10 Albumin 4.2 g/dL (3.9-5) 08/24/19 21:10 Albumin/Globulin Ratio 1.3 % 08/24/19 21:10 - Imaging and Cardiology Imaging and Cardiology: CXR: FINDINGS: Support devices: None. Heart: Within normal limits. Lungs/Pleura: Right lung is clear. Mild atelectasis/scarring left base. Additional findings: None. IMPRESSION: Mild atelectasis/scarring left base. CT Brain: FINDINGS: HEMORRHAGE: No evidence of intracranial hemorrhage or extra-axial fluid collection. EXTRA-AXIAL SPACES: Cortical sulci and sylvian fissures are within normal limits in size for the patient's age 79 years. Basilar cisterns have an unremarkable appearance. VENTRICULAR SYSTEM: The third and lateral ventricles are normal in size and configuration. CEREBRAL PARENCHYMA: Periventricular and deep white matter lucency is observed. This is probably secondary to microvascular ischemic change. There is no indication of recent infarction. No areas of encephalomalacia are identified. MIDLINE SHIFT OR HERNIATION: There is no mass effect. CEREBELLUM / BRAINSTEM: Brainstem has an unremarkable appearance. An area of decreased attenuation in the posterior inferior aspect of the left cerebellar hemisphere likely represents the sequelae of remote left cerebellar infarction. INTRACRANIAL VESSELS:Calcified atherosclerotic plaque is present along the course of the cavernous segments of both internal carotid arteries. Similar findings are seen at the distal vertebral arteries. ORBITS: visualized portions of the orbits have an unremarkable appearance. SOFT TISSUES of HEAD: No significant abnormality. CALVARIUM: Evaluation of bone windows reveals no abnormalities. PARANASAL SINUSES / MASTOID AIR CELLS: Evaluation of the sinonasal cavity is remarkable for the presence of opacification of the maxillary sinuses, the sphenoid sinuses, both frontal sinuses and multiple ethmoid air cells consistent with pansinusitis. 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 Mastoid air cells are free from inflammatory mucosal disease. IMPRESSION: 1. Evidence of remote left cerebellar infarction. 2. No acute intracranial abnormality. 3. Pansinusitis. Assessment and Plan Assessment and plan: 79-year-old -[place] male with history of hypertension, GERD, diabetes, coronary artery disease status post CABG and stents, TIA 2 who presents to [facility] ED via EMS with complaints of left-sided weakness and left hand numbness. CVA -CT Head shows evidence of remote left cerebellar infarction -Tele-Neurology consulted; recommendations appreciated -S/P TPA -Repeat CT Head 24hrs post TPA administration -MRI/ MRA Head, MRI Cervical Spine without contrast, Echo pending -Neurology consulted -Neuro Checks -PT/OT eval pending -Speech eval Pending -Lipid panel pending -Allow for permissive hypertension -Continue statin -Hold off on oral and anticoagulation for 24 hours post TPA HTN -Monitor BP -Allow for permissive hypertension -SBP 180 or less, DBP 105 or less -IV Labetalol when necessary -Hold home antihypertensive meds DM2 -POC BG monitoring -Continue Metformin -SSI coverage prn -Hgb A1c pending GERD -Continue PPI DVT PPX -SCD's -Hold off on systemic anticoagulation until 24 hours post TPA Advance Directives: No VTE prophylaxis?: Mechanical Plan of care discussed with patient/family: Yes <USMAN BLACKBURN - Last Filed: 08/25/19 01:28> History of Present Illness Date of admission: 08/24/19 23:07 Medications and Allergies Active Meds: Active Medications Acetaminophen (Tylenol) 650 mg PO Q4H PRN PRN Reason: Pain MILD(1-3)/Fever >100.5/[place] Arformoterol Tartrate (Brovana Nebu) 15 mcg IH Q12HRT [facility] Atorvastatin Calcium (Lipitor) 40 mg PO QHS [facility] Bisacodyl (Dulcolax) 10 mg MI QDAY PRN PRN Reason: Constipation Budesonide (Pulmicort) 0.5 mg IH Q12HRT [facility] Dextrose (D50w (25gm) Syringe) 0 ml IV Q30MIN PRN; Protocol PRN Reason: Hypoglycemia Docusate Sodium (Colace) 100 mg PO BID [facility] Gabapentin (Gabapentin) 100 mg PO DAILY [facility] Insulin Human Lispro (Humalog) 0 unit SUB-Q Q6HR [facility]; Protocol Labetalol HCl (Labetalol) 10 mg IV Q5MIN PRN PRN Reason: to maintain SBP < 180; DBP<105 Loratadine (Claritin) 10 mg PO DAILY PRN PRN Reason: Allergy Symptoms Magnesium Hydroxide (Milk Of Magnesia) 30 ml PO Q4H PRN PRN Reason: Constipation Metformin HCl (Glucophage) 1,000 mg PO BIDDIAB [facility] Ondansetron HCl (Zofran) 4 mg IV Q8H PRN PRN Reason: Nausea And Vomiting Oxybutynin Chloride (Ditropan) 5 mg PO BID [facility] Pantoprazole Sodium (Protonix) 40 mg PO QDAY [facility] Sodium Chloride (Sodium Chloride Flush Syringe 10 Ml) 10 ml IV BID [facility] Sodium Chloride (Sodium Chloride Flush Syringe 10 Ml) 10 ml IV PRN PRN PRN Reason: LINE FLUSH Exam - Constitutional Vitals: Temp Pulse Resp BP Pulse Ox 97.9 F 73 23 140/97 97 08/24/19 22:00 08/25/19 00:00 08/25/19 00:00 08/25/19 00:00 08/25/19 00:00 Results - Labs CBC & Chem 7: 08/24/19 21:10 08/24/19 21:10 Labs: Laboratory Last Values WBC 5.7 K/mm3 (4.5-11.0) 08/24/19 21:10 RBC 4.18 M/mm3 (3.65-5.03) 08/24/19 21:10 Hgb 11.5 gm/dl (11.8-15.2) L 08/24/19 21:10 Hct 35.3 % (35.5-45.6) L 08/24/19 21:10 MCV 85 fl (84-94) 08/24/19 21:10 MCH 28 pg (28-32) 08/24/19 21:10 MCHC 33 % (32-34) 08/24/19 21:10 RDW 16.3 % (13.2-15.2) H 08/24/19 21:10 Plt Count 163 K/mm3 (140-440) 08/24/19 21:10 Lymph % (Auto) 38.1 % (13.4-35.0) H 08/24/19 21:10 [place] % (Auto) 12.6 % (0.0-7.3) H 08/24/19 21:10 Eos % (Auto) 9.1 % (0.0-4.3) H 08/24/19 21:10 Baso % (Auto) 2.0 % (0.0-1.8) H 08/24/19 21:10 Lymph # 2.2 K/mm3 (1.2-5.4) 08/24/19 21:10 [place] # 0.7 K/mm3 (0.0-0.8) 08/24/19 21:10 Eos # 0.5 K/mm3 (0.0-0.4) H 08/24/19 21:10 Baso # 0.1 K/mm3 (0.0-0.1) 08/24/19 21:10 Seg Neutrophils % 38.2 % (40.0-70.0) L 08/24/19 21:10 Seg Neutrophils # 2.2 K/mm3 (1.8-7.7) 08/24/19 21:10 PT 13.1 Sec. (12.2-14.9) 08/24/19 21:10 INR 1.00 (0.87-1.13) 08/24/19 21:10 APTT 37.9 Sec. (24.2-36.6) H 08/24/19 21:10 Thrombin Time 16.1 Sec. (15.1-19.6) 08/24/19 21:10 Sodium 134 mmol/L (137-145) L 08/24/19 21:10 Potassium 4.2 mmol/L (3.6-5.0) 08/24/19 21:10 Chloride 98.2 mmol/L (98-107) 08/24/19 21:10 Carbon Dioxide 21 mmol/L (22-30) L 08/24/19 21:10 Anion Gap 19 mmol/L 08/24/19 21:10 BUN 10 mg/dL (9-20) 08/24/19 21:10 Creatinine 0.8 mg/dL (0.8-1.5) 08/24/19 21:10 Estimated GFR > 60 ml/min 08/24/19 21:10 BUN/Creatinine Ratio 13 % 08/24/19 21:10 Glucose 205 mg/dL (75-100) H 08/24/19 21:10 POC Glucose 226 (70-105) H 08/24/19 20:58 Calcium 8.9 mg/dL (8.4-10.2) 08/24/19 21:10 Total Bilirubin 0.30 mg/dL (0.1-1.2) 08/24/19 21:10 Direct Bilirubin < 0.2 mg/dL (0-0.2) 08/24/19 21:10 Indirect Bilirubin 0.1 mg/dL 08/24/19 21:10 AST 28 units/L (5-40) 08/24/19 21:10 ALT 20 units/L (7-56) 08/24/19 21:10 Alkaline Phosphatase 84 units/L (35-129) 08/24/19 21:10 Total Creatine Kinase 105 units/L (55-170) 08/24/19 21:10 CK-MB (CK-2) 2.4 ng/mL (0.0-4.0) 08/24/19 21:10 CK-MB (CK-2) Rel Index 2.2 (0-4) 08/24/19 21:10 Troponin T < 0.010 ng/mL (0.00-0.029) 08/25/19 00:15 Total Protein 7.4 g/dL (6.3-8.2) 08/24/19 21:10 Albumin 4.2 g/dL (3.9-5) 08/24/19 21:10 Albumin/Globulin Ratio 1.3 % 08/24/19 21:10 Assessment and Plan Assessment and plan: patient seen and examined, d/w W[facility] [employer]. 79 year old man with history of HTN, DM, TIA, GERD, CAD comes to the ER complaining of left side weakness and left hand numbness, s/p TPA. MRI of head and neck and c/spine per neurology recommendation, check echo, consult critical care.
[2019-08-25 04:44] LABS: Basophils # (Auto) 0.1 K/mm3 (0.0-0.1); Basophils % (Auto) 1.1 % (0.0-1.8); Eosinophils # (Auto) 0.6 K/mm3 (0.0-0.4); Eosinophils % (Auto) 8.9 % (0.0-4.3); Hematocrit 34.9 % (35.5-45.6); Hemoglobin 11.5 gm/dl (11.8-15.2); Lymphocytes # (Auto) 2.6 K/mm3 (1.2-5.4); Lymphocytes % (Auto) 42.4 % (13.4-35.0); Mean Corpuscular HGB Conc 33 % (32-34); Mean Corpuscular Volume 84 fl (84-94); Monocytes # (Auto) 0.7 K/mm3 (0.0-0.8); Monocytes % (Auto) 11.8 % (0.0-7.3); Platelet Count 148 K/mm3 (140-440); Red Blood Count 4.15 M/mm3 (3.65-5.03)
[2019-08-25 05:27] LABS: BUN/Creatinine Ratio 13; Blood Urea Nitrogen 10 mg/dL (9-20); Calcium 9.1 mg/dL (8.4-10.2); Chol/HDL Ratio 2.36 %; HDL Cholesterol 57 mg/dL (40-59); Hemolysis Index 20; LDL Cholesterol,Direct 76 mg/dL (50-130)
[2019-08-25] MEDS: INSULIN LISPRO 100 UNIT/ML SUB-Q SCH ×3 (07:33→18:49)
[2019-08-25] MEDS ORDERED: metFORMIN 500 MG TAB ONE ×2 (08:26→17:22)
[2019-08-25] MEDS: metFORMIN 500 MG TAB PO SCH ×2 (08:29→17:26)
[2019-08-25] MEDS ORDERED: DOCUSATE SODIUM 100 MG CAP ONE ×2 (09:11→22:53)
[2019-08-25] MEDS ORDERED: GABAPENTIN 100 MG CAP ONE (09:11)
[2019-08-25] MEDS ORDERED: BUDESONIDE 0.5 MG/2 ML NEBU IH ONE ×2 (09:21→23:04)
[2019-08-25] MEDS ORDERED: ARFORMOTEROL 15 MCG/2 ML NEBU IH ONE ×2 (09:22→23:05)
[2019-08-25] MEDS: BUDESONIDE 0.5 MG/2 ML NEBU IH SCH ×2 (09:22→23:03)
[2019-08-25] MEDS: ARFORMOTEROL 15 MCG/2 ML NEBU IH SCH ×2 (09:23→23:10)
[2019-08-25] MEDS ORDERED: PANTOPRAZOLE 40 MG TAB PO ONE (09:24)
[2019-08-25] MEDS: DOCUSATE SODIUM 100 MG CAP PO SCH ×2 (09:25→22:58)
[2019-08-25] MEDS: GABAPENTIN 100 MG CAP PO SCH (09:26)
[2019-08-25] MEDS: PANTOPRAZOLE 40 MG TAB PO SCH (09:27)
[2019-08-25] MEDS ORDERED: SALMETEROL INHALATION SCH (10:00)
[2019-08-25] MEDS ORDERED: FLUTICASONE INHALATION SCH (10:00)
--- NOTE | 2019-08-25 10:37 | XRay Report ---
XR eye BILAT foreign body INDICATION: Clear orbits for MRI. COMPARISON: None available. FINDINGS: There are no radiopaque foreign bodies in the orbits or head which would preclude MRI. Signer Name: Benson Mclaughlin MD Signed: 08/25/2019 10:32 AM Workstation Name: [id number]
--- NOTE | 2019-08-25 12:59 | Magnetic Resonance Report ---
MRI BRAIN WITHOUT CONTRAST INDICATION / CLINICAL INFORMATION: stroke. TECHNIQUE: Multiplanar, multisequence MR images of the brain were obtained. COMPARISON: None available. FINDINGS: BRAIN / INTRACRANIAL CONTENTS: There is an older infarct involving the left cerebellum within the lef t PICA distribution with encephalomalacia. On the FLAIR sequence, there are scattered small hyperinte nse foci involving the cerebral white matter most consistent with mild microvascular angiopathy. The diffusion imaging reveals no evidence of acute infarction. There is mild cerebral atrophy. The ventricular system is correspondingly appropriate in size and con figuration. No extra-axial fluid collections or significant mass effect is identified. CRANIOCERVICAL JUNCTION: No significant abnormality. VASCULAR FLOW-VOIDS: No significant abnormality. ORBITS: No significant abnormality of visualized orbits. SINUSES / MASTOIDS: There is extensive inflammatory disease disease with near complete opacification of the paranasal sinuses. The mastoid air cells are clear. ADDITIONAL FINDINGS: None. IMPRESSION: 1. 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 2. There is otherwise mild microvascular angiopathy without evidence of acute infarction. There is pansinus inflammatory disease. Signer Name: Ashwin Farias MD Signed: 08/25/2019 12:55 PM Workstation Name: [id number]
--- NOTE | 2019-08-25 13:03 | Magnetic Resonance Report ---
MRI CERVICAL SPINE WITHOUT CONTRAST INDICATION / CLINICAL INFORMATION: Weakness; stroke TECHNIQUE: Multisequence, multiplanar images of the cervical spine were obtained. COMPARISON: None available. FINDINGS: CRANIOCERVICAL JUNCTION:No significant abnormality. ALIGNMENT: No significant abnormality. VERTEBRAE:Normal marrow signal and vertebral body height for age. VISUALIZED SPINAL CORD: No significant abnormality. [id number] ANALYSIS: C2-3: No significant disc abnormality, spinal canal stenosis, or neural foraminal stenosis. C3-4: Shallow lateral disc protrusion is seen bilaterally. Facet joint hypertrophic changes are seen on the right side. Both neuroforamina are narrowed. C4-5: Nonlateralizing bulging disc is seen. Facet joint hypertrophic degenerative changes are seen on the left side. C5-6: Bulging disc is seen. Neuroforamina are normal. C6-7: Shallow midline disc protrusion is seen. Neuroforamina are narrowed. C7-T1: Normal. PARASPINAL SOFT TISSUES: No significant abnormality. ADDITIONAL FINDINGS: Sphenoid sinus mucosal thickening; volume loss in the cerebellar vermis IMPRESSION: Shallow disc protrusion at C3-C4 disc level extending bilaterally Shallow midline disc protrusion at C6-C7 disc level Signer Name: Choco Ludwig MD Signed: 08/25/2019 12:59 PM Workstation Name: [id number]
--- NOTE | 2019-08-25 13:03 | Magnetic Resonance Report ---
MR MRA/MRV head wo con INDICATION / CLINICAL INFORMATION: 79 years Male; stroke. TECHNIQUE: 3-D time of flight. NASCET type criteria used to evaluate stenoses. COMPARISON: None available. FINDINGS: INTERNAL CAROTID ARTERIES: The motion degrades the image quality. However, there is no evidence of si gnificant stenosis involving the internal carotid arteries by NASCET criteria. Vertebrobasilar system: There is encephalomalacia involving the inferior left cerebellum compatible w ith old infarct. There is relative decreased signal within the distal left vertebral artery which may reflect a decrease or altered flow. There is no significant focal narrowing involving the basilar ar jorge. Distal cerebral arteries. The motion again degrades the image quality particularly involving the dist al segments appeared however, there is no clear evidence of significant focal narrowing. Aneurysm: There is no definitive MRA evidence of intracranial aneurysm. IMPRESSION: There is encephalomalacia involving inferior left cerebellum compatible old infarct. There is mild re lative decrease of signal within the distal left vertebral artery which may reflect a decrease or alt ered flow. The motion degrades image quality, however, the MRA of the head otherwise appears unremarkable. Signer Name: Ashwin Farias MD Signed: 08/25/2019 12:59 PM Workstation Name: [id number]
[2019-08-25] MEDS: OXYBUTYNIN 5 MG TAB PO SCH ×2 (14:37→22:58)
[2019-08-25] MEDS ORDERED: INSULIN LISPRO 100 UNIT/ML SUB-Q ONE ×2 (14:45→18:45)
--- NOTE | 2019-08-25 15:19 | Progress Note ---
Assessment and Plan Assessment and plan: Patient is a 79-year-old -[place] male with history of hypertension, GERD, diabetes, coronary artery disease status post CABG and stents, TIA 2 who presents to [facility] ED via EMS with complaints of left-sided weakness and left hand numbness. * MRI brain without contrast IMPRESSION: 1. 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 2. There is otherwise mild microvascular angiopathy without evidence of acute infarction. There is pansinus inflammatory disease. * MR c-spine without contrast IMPRESSION: Shallow disc protrusion at C3-C4 disc level extending bilaterally Shallow midline disc protrusion at C6-C7 disc level * MRA head w/o contrast IMPRESSION: There is encephalomalacia involving inferior left cerebellum compatible old infarct. There is mild relative decrease of signal within the distal left vertebral artery which may reflect a decrease or altered flow. The motion degrades image quality, however, the MRA of the head otherwise appears unremarkable. CVA -CT Head shows evidence of remote left cerebellar infarction -Tele-Neurology consulted; recommendations appreciated -S/P TPA -Repeat CT Head 24hrs post TPA administration -MRI/ MRA Head, MRI Cervical Spine without contrast, Echo pending -Neurology consulted -Neuro Checks -PT/OT eval pending -Speech eval Pending -Lipid panel pending -Allow for permissive hypertension -Continue statin -Hold off on oral and anticoagulation for 24 hours post TPA HTN -Monitor BP -Allow for permissive hypertension -SBP 180 or less, DBP 105 or less -IV Labetalol when necessary -Hold home antihypertensive meds DM2 -POC BG monitoring -Continue Metformin -SSI coverage prn -Hgb A1c pending GERD -Continue PPI DVT PPX -SCD's -Hold off on systemic anticoagulation until 24 hours post TPA History Interval history: Patient was seen and examined. Follow-up on current diagnosis of CVA. No overnight events reported to me. Patient denies any chest pain, shortness dimitri th, nausea/vomiting or severe headaches. Imaging, nursing note, chart, labs and old chart reviewed. Discussed with patient. Hospitalist Physical - Physical exam Narrative exam: Gen: WDWN, NAD, Awake, Alert, Orientated HEENT: NCAT, EOMI, PERRL, OP Clear Neck: supple, no adenopathy, no thyromegaly, no JVD CVS/Heart: RRR, normal S1S2, pulses present bilaterally Chest/Lungs: CTA B, Symmetrical chest expansion, good air entry bilaterally GI/Abdomen: soft, NTND, good bowel sounds, no guarding or rebound /Bladder: no suprapubic tenderness, no CVA or paraspinal tenderness Extermity/Skin: no c/c/e, no obvious rash MSK: FROM x 4, Neuro: CN 2-12 grossly intact except speech, no new focal deficits Psych: calm - Constitutional Vitals: Temp Pulse Resp BP Pulse Ox 97.8 F 90 16 137/79 100 08/25/19 14:20 08/25/19 14:00 08/25/19 14:00 08/25/19 14:00 08/25/19 14:00 Results - Labs CBC & Chem 7: 08/25/19 04:26 08/25/19 04:26 Labs: Laboratory Last Values WBC 6.2 K/mm3 (4.5-11.0) 08/25/19 04:26 RBC 4.15 M/mm3 (3.65-5.03) 08/25/19 04:26 Hgb 11.5 gm/dl (11.8-15.2) L 08/25/19 04:26 Hct 34.9 % (35.5-45.6) L 08/25/19 04:26 MCV 84 fl (84-94) 08/25/19 04:26 MCH 28 pg (28-32) 08/25/19 04:26 MCHC 33 % (32-34) 08/25/19 04:26 RDW 16.0 % (13.2-15.2) H 08/25/19 04:26 Plt Count 148 K/mm3 (140-440) 08/25/19 04:26 Lymph % (Auto) 42.4 % (13.4-35.0) H 08/25/19 04:26 Martin % (Auto) 11.8 % (0.0-7.3) H 08/25/19 04:26 Eos % (Auto) 8.9 % (0.0-4.3) H 08/25/19 04:26 Baso % (Auto) 1.1 % (0.0-1.8) 08/25/19 04:26 Lymph # 2.6 K/mm3 (1.2-5.4) 08/25/19 04:26 Martin # 0.7 K/mm3 (0.0-0.8) 08/25/19 04:26 Eos # 0.6 K/mm3 (0.0-0.4) H 08/25/19 04:26 Baso # 0.1 K/mm3 (0.0-0.1) 08/25/19 04:26 Seg Neutrophils % 35.8 % (40.0-70.0) L 08/25/19 04:26 Seg Neutrophils # 2.2 K/mm3 (1.8-7.7) 08/25/19 04:26 PT 13.1 Sec. (12.2-14.9) 08/24/19 21:10 INR 1.00 (0.87-1.13) 08/24/19 21:10 APTT 37.9 Sec. (24.2-36.6) H 08/24/19 21:10 Thrombin Time 16.1 Sec. (15.1-19.6) 08/24/19 21:10 Sodium 136 mmol/L (137-145) L 08/25/19 04:26 Potassium 4.3 mmol/L (3.6-5.0) 08/25/19 04:26 Chloride 99.2 mmol/L (98-107) 08/25/19 04:26 Carbon Dioxide 23 mmol/L (22-30) 08/25/19 04:26 Anion Gap 18 mmol/L 08/25/19 04:26 BUN 10 mg/dL (9-20) 08/25/19 04:26 Creatinine 0.8 mg/dL (0.8-1.5) 08/25/19 04:26 Estimated GFR > 60 ml/min 08/25/19 04:26 BUN/Creatinine Ratio 13 % 08/25/19 04:26 Glucose 139 mg/dL (75-100) H 08/25/19 04:26 POC Glucose 219 (70-105) H 08/25/19 14:50 Hemoglobin A1c 7.8 % (4-6) H 08/25/19 00:15 Calcium 9.1 mg/dL (8.4-10.2) 08/25/19 04:26 Total Bilirubin 0.30 mg/dL (0.1-1.2) 08/24/19 21:10 Direct Bilirubin < 0.2 mg/dL (0-0.2) 08/24/19 21:10 Indirect Bilirubin 0.1 mg/dL 08/24/19 21:10 AST 28 units/L (5-40) 08/24/19 21:10 ALT 20 units/L (7-56) 08/24/19 21:10 Alkaline Phosphatase 84 units/L (35-129) 08/24/19 21:10 Total Creatine Kinase 105 units/L (55-170) 08/24/19 21:10 CK-MB (CK-2) 2.4 ng/mL (0.0-4.0) 08/24/19 21:10 CK-MB (CK-2) Rel Index 2.2 (0-4) 08/24/19 21:10 Troponin T < 0.010 ng/mL (0.00-0.029) 08/25/19 00:15 Total Protein 7.4 g/dL (6.3-8.2) 08/24/19 21:10 Albumin 4.2 g/dL (3.9-5) 08/24/19 21:10 Albumin/Globulin Ratio 1.3 % 08/24/19 21:10 Triglycerides 72 mg/dL (2-149) 08/25/19 04:26 Cholesterol 135 mg/dL (50-199) 08/25/19 04:26 LDL Cholesterol Direct 76 mg/dL (50-130) 08/25/19 04:26 HDL Cholesterol 57 mg/dL (40-59) 08/25/19 04:26 Cholesterol/HDL Ratio 2.36 % 08/25/19 04:26 Active Medications - Current Medications Current Medications: Generic Name Dose Route Start Last Admin Trade Name Freq PRN Reason Stop Dose Admin Acetaminophen 650 mg 08/24/19 23:07 Tylenol PO Q4H PRN Pain MILD(1-3)/Fever >100.5/WHIT[place]KER Arformoterol Tartrate 15 mcg 08/25/19 08:00 08/25/19 09:23 Brovana Nebu IH 15 mcg Q12HRT SAHARA Administration Atorvastatin Calcium 40 mg 08/25/19 22:00 Lipitor PO QHS SAHARA Bisacodyl 10 mg 08/24/19 23:[address] QDAY PRN Constipation Budesonide 0.5 mg 08/25/19 08:00 08/25/19 09:22 Pulmicort IH 0.5 mg Q12HRT SAHARA Administration Dextrose 0 ml 08/24/19 23:07 D50w (25gm) Syringe IV Q30MIN PRN Hypoglycemia Protocol Docusate Sodium 100 mg 08/25/19 10:00 08/25/19 09:25 Colace PO 100 mg BID SAHARA Administration Gabapentin 100 mg 08/25/19 10:00 08/25/19 09:26 Gabapentin PO 100 mg DAILY SAHARA Administration Insulin Human Lispro 0 unit 08/25/19 00:00 08/25/19 14:51 Humalog SUB-Q 2 unit Q6HR SAHARA Administration Protocol Labetalol HCl 10 mg 08/24/19 23:07 Labetalol IV Q5MIN PRN to maintain SBP < 180; DBP<105 Loratadine 10 mg 08/24/19 23:16 Claritin PO DAILY PRN Allergy Symptoms Magnesium Hydroxide 30 ml 08/24/19 23:07 Milk Of Magnesia PO Q4H PRN Constipation Metformin HCl 1,000 mg 08/25/19 08:00 08/25/19 08:29 Glucophage PO 1,000 mg BIDDIAB SAHARA Administration Ondansetron HCl 4 mg 08/24/19 23:07 Zofran IV Q8H PRN Nausea And Vomiting Oxybutynin Chloride 5 mg 08/25/19 10:00 08/25/19 14:37 Ditropan PO 5 mg BID SAHARA Administration Pantoprazole Sodium 40 mg 08/25/19 10:00 08/25/19 09:27 Protonix PO 40 mg QDAY SAHARA Administration Sodium Chloride 10 ml 08/25/19 10:00 08/25/19 09:28 Sodium Chloride Flush Syringe 10 Ml IV 10 ml BID SAHARA Administration Sodium Chloride 10 ml 08/24/19 23:07 Sodium Chloride Flush Syringe 10 Ml IV PRN PRN LINE FLUSH Nutrition/Malnutrition Assess - Dietary Evaluation Nutrition/Malnutrition Findings: Nutrition Notes Start: 08/25/19 14:02 Freq: Status: Active Protocol: Document 08/25/19 14:02 CC (Rec: 08/25/19 14:06 CC [id number]) Co-Sign 08/25/19 14:02 LP Nutrition Notes Need for Assessment generated from: MD Order,Education Initial or Follow up Brief Note Current Diagnosis Coronary Artery Disease, Diabetes,Hypertension Other Pertinent Diagnosis TIA, CABG, GERD Current Diet const. CHO Labs/Tests A1c 7.8 Pertinent Medications Metformin Height 6 ft Weight 90.6 kg [place] Body Weight (kg) 80.90 BMI 27.1 Subjective/Other Information Consulted for diet education. Pt awaiting bed in CCU unable to give education at this time Nutrition Intervention Anticipated Discharge Needs: consistent CHO Follow-Up By: 08/26/19 Additional Comments F/U for diet education
[2019-08-25] MEDS ORDERED: INSULIN REGULAR, HUMAN 100 UNITS/1 ML ONE (17:35)
--- NOTE | 2019-08-25 17:46 | Consultation ---
History of Present Illness Consult date: 08/25/19 Chief complaint: left sided weakness History of present illness: This is a 79 YO M who presented to the ED with left sided weakness which has s leonila resolved. Pt treated with Alteplase. No current complaints. Past History Past Medical History: CAD, diabetes, GERD, hypertension, stroke, other (TIA x2) Past Surgical History: CABG, Other (stent) Social history: , Lives alone Family history: hypertension, stroke (mother) Medications and Allergies Allergies Allergy/AdvReac Type Severity Reaction Status Date / Time ibuprofen Allergy Severe Shortness Verified 12/05/17 15:41 of Breath Home Medications Medication Instructions Recorded Confirmed Last Taken Type Acetaminophen [Tylenol Extra 500 mg PO Q6HR PRN 09/18/17 08/24/19 10/23/17 History Strength] AtorvaSTATin [Lipitor] 40 mg PO QHS 09/18/17 08/24/19 08/24/19 History Cetirizine HCl [All Day Allergy] 10 mg PO DAILY PRN 09/18/17 08/24/19 10/29/17 History Pantoprazole [Protonix] 40 mg PO QDAY 09/18/17 08/24/19 08/24/19 History Simethicone [Gas Relief] 125 mg PO DAILY PRN 09/18/17 08/24/19 10/29/17 History metFORMIN [Glucophage] 1,000 mg PO BID 09/18/17 08/24/19 08/24/19 History Fluticasone/Salmeterol (Nf) 1 puff INHALATION BID 10/17/17 08/24/19 08/24/19 History [Advair 250-50 Diskus] Metoprolol [Lopressor] 100 mg PO BID 10/17/17 08/24/19 08/24/19 History Oxybutynin [Ditropan] 5 mg PO BID 10/17/17 08/24/19 08/24/19 History amLODIPine [Norvasc] 10 mg PO DAILY 10/17/17 08/24/19 08/24/19 History Aspirin [Lo-Dose Aspirin EC] 81 mg PO DAILY 10/29/17 08/24/19 08/24/19 History Gabapentin 100 mg PO DAILY 08/24/19 08/24/19 08/24/19 History Active Meds: Active Medications Acetaminophen (Tylenol) 650 mg PO Q4H PRN PRN Reason: Pain MILD(1-3)/Fever >100.5/[place] Arformoterol Tartrate (Brovana Nebu) 15 mcg IH Q12HRT [facility] Last Admin: 08/25/19 09:23 Dose: 15 mcg Documented by: Atorvastatin Calcium (Lipitor) 40 mg PO QHS [facility] Bisacodyl (Dulcolax) 10 mg [place] QDAY PRN PRN Reason: Constipation Budesonide (Pulmicort) 0.5 mg IH Q12HRT [facility] Last Admin: 08/25/19 09:22 Dose: 0.5 mg Documented by: Dextrose (D50w (25gm) Syringe) 0 ml IV Q30MIN PRN; Protocol PRN Reason: Hypoglycemia Docusate Sodium (Colace) 100 mg PO BID [facility] Last Admin: 08/25/19 09:25 Dose: 100 mg Documented by: Gabapentin (Gabapentin) 100 mg PO DAILY [facility] Last Admin: 08/25/19 09:26 Dose: 100 mg Documented by: Insulin Human Lispro (Humalog) 0 unit SUB-Q Q6HR [facility]; Protocol Last Admin: 08/25/19 14:51 Dose: 2 unit Documented by: Labetalol HCl (Labetalol) 10 mg IV Q5MIN PRN PRN Reason: to maintain SBP < 180; DBP<105 Loratadine (Claritin) 10 mg PO DAILY PRN PRN Reason: Allergy Symptoms Magnesium Hydroxide (Milk Of Magnesia) 30 ml PO Q4H PRN PRN Reason: Constipation Metformin HCl (Glucophage) 1,000 mg PO BIDDIAB [facility] Last Admin: 08/25/19 17:26 Dose: 1,000 mg Documented by: Ondansetron HCl (Zofran) 4 mg IV Q8H PRN PRN Reason: Nausea And Vomiting Oxybutynin Chloride (Ditropan) 5 mg PO BID [facility] Last Admin: 08/25/19 14:37 Dose: 5 mg Documented by: Pantoprazole Sodium (Protonix) 40 mg PO QDAY [facility] Last Admin: 08/25/19 09:27 Dose: 40 mg Documented by: Sodium Chloride (Sodium Chloride Flush Syringe 10 Ml) 10 ml IV BID [facility] Last Admin: 08/25/19 09:28 Dose: 10 ml Documented by: Sodium Chloride (Sodium Chloride Flush Syringe 10 Ml) 10 ml IV PRN PRN PRN Reason: LINE FLUSH Review of Systems Neurological: weakness Physical Examination - Vital Signs Vital Signs: Vital Signs Temp Pulse Resp BP Pulse Ox 97.8 F 70 20 164/72 99 08/24/19 21:05 08/24/19 21:05 08/24/19 21:05 08/24/19 21:05 08/24/19 21:05 - EENT EENT: Present: mucous membranes moist - Respiratory Respiratory: Present: lungs clear, normal breath sounds - Cardiovascular Cardiovascular: Present: regular rate - Gastrointestinal Gastrointestinal: Present: normoactive bowel sounds - Integumentary Integumentary: Present: normal - Neurologic Cranial nerve examination: PERRL, EOMI, V1/V2/V3 grossly intact, face symmetric Sensorimotor examination: intact Motor examination - right side: 5/5: biceps, triceps, wrist flexion, wrist extension, meat dresser, hip flexors, knee extensors, dorsiflexion, toe extension (EHL), plantarflexion Motor examination - left side: 5/5: biceps, triceps, wrist flexion, wrist extension, meat dresser, hip flexors, knee extensors, dorsiflexion, toe extension (EHL), plantarflexion Reflexes: 1+: ankle, bicep, knee, tricep Cerebellar examination: other (FNF ok) - Psychiatric Psychiatric: Present: mood/affect appropriate Results - Laboratory Findings CBC and BMP: 08/25/19 04:26 08/25/19 04:26 Abnormal Lab Findings: Abnormal Labs 08/24/19 08/24/19 08/24/19 20:58 21:10 21:10 Hgb 11.5 L Hct 35.3 L RDW 16.3 H Lymph % (Auto) 38.1 H [place] % (Auto) 12.6 H Eos % (Auto) 9.1 H Baso % (Auto) 2.0 H Eos # 0.5 H Seg Neutrophils % 38.2 L APTT 37.9 H Sodium Carbon Dioxide Glucose POC Glucose 226 H Hemoglobin A1c 08/24/19 08/25/19 08/25/19 21:10 00:15 04:26 Hgb 11.5 L Hct 34.9 L RDW 16.0 H Lymph % (Auto) 42.4 H [place] % (Auto) 11.8 H Eos % (Auto) 8.9 H Baso % (Auto) Eos # 0.6 H Seg Neutrophils % 35.8 L APTT Sodium 134 L Carbon Dioxide 21 L Glucose 205 H POC Glucose Hemoglobin A1c 7.8 H 08/25/19 08/25/19 08/25/19 04:26 07:33 11:10 Hgb Hct RDW Lymph % (Auto) [place] % (Auto) Eos % (Auto) Baso % (Auto) Eos # Seg Neutrophils % APTT Sodium 136 L Carbon Dioxide Glucose 139 H POC Glucose 142 H 151 H Hemoglobin A1c 08/25/19 08/25/19 14:50 17:33 Hgb Hct RDW Lymph % (Auto) [place] % (Auto) Eos % (Auto) Baso % (Auto) Eos # Seg Neutrophils % APTT Sodium Carbon Dioxide Glucose POC Glucose 219 H 160 H Hemoglobin A1c - Diagnostic Findings Additional findings: MRI brain old l cerebellar infarct MRA slow flow left vertebral Assessment and Plan This is a 79 YO M with TIA vs decompensation of previous left cerebellar stroke REcommend: Would change aspirin to Plavix once pt has CT head 24 [address] is negative for hemorhage, pt taking aspirin daily at home, statin, VTE prophylaxis(mechanical) lipids and A1C, PT/OT/ST, MRI/A reviewed Continue care for all medical issues as you are doing No further recommendations.
--- NOTE | 2019-08-25 22:37 | Event Note ---
patient with no acute issues, s/p TPA 24 hours, downgrade to tele, patient holding in ER
[2019-08-26] MEDS: INSULIN LISPRO 100 UNIT/ML SUB-Q SCH ×4 (00:50→18:28)
[2019-08-26] MEDS: ARFORMOTEROL 15 MCG/2 ML NEBU IH SCH ×2 (09:27→19:48)
[2019-08-26] MEDS: BUDESONIDE 0.5 MG/2 ML NEBU IH SCH ×2 (09:28→19:48)
[2019-08-26] MEDS: OXYBUTYNIN 5 MG TAB PO SCH ×2 (09:40→21:37)
[2019-08-26] MEDS: metFORMIN 500 MG TAB PO SCH ×2 (09:40→18:28)
[2019-08-26] MEDS: PANTOPRAZOLE 40 MG TAB PO SCH (09:40)
[2019-08-26] MEDS: DOCUSATE SODIUM 100 MG CAP PO SCH ×2 (09:40→21:37)
[2019-08-26] MEDS: GABAPENTIN 100 MG CAP PO SCH (09:40)
--- NOTE | 2019-08-26 18:39 | Progress Note ---
Assessment and Plan Assessment and plan: Patient is a 79-year-old -[place] male with history of hypertension, GERD, diabetes, coronary artery disease status post CABG and stents, TIA 2 who presents to [facility] ED via EMS with complaints of left-sided weakness and left hand numbness. * MRI brain without contrast IMPRESSION: 1. 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 2. There is otherwise mild microvascular angiopathy without evidence of acute infarction. There is pansinus inflammatory disease. * MR c-spine without contrast IMPRESSION: Shallow disc protrusion at C3-C4 disc level extending bilaterally Shallow midline disc protrusion at C6-C7 disc level * MRA head w/o contrast IMPRESSION: There is encephalomalacia involving inferior left cerebellum compatible old infarct. There is mild relative decrease of signal within the distal left vertebral artery which may reflect a decrease or altered flow. The motion degrades image quality, however, the MRA of the head otherwise appears unremarkable. Acute worsening of old Left CVA -CT Head shows evidence of remote left cerebellar infarction -Tele-Neurology consulted; recommendations appreciated -S/P TPA -Repeat CT Head 24hrs post TPA administration -MRI/ MRA Head, MRI Cervical Spine without contrast, Echo pending -Neurology consulted -Neuro Checks -PT/OT eval pending -Speech eval Pending -Lipid panel pending -Allow for permissive hypertension -Continue statin -Hold off on oral and anticoagulation for 24 hours post TPA HTN -Monitor BP -Allow for permissive hypertension -SBP 180 or less, DBP 105 or less -IV Labetalol when necessary -Hold home antihypertensive meds DM2 -POC BG monitoring -Continue Metformin -SSI coverage prn -Hgb A1c pending GERD -Continue PPI DVT PPX -SCD's -Hold off on systemic anticoagulation until 24 hours post TPA Repeat CT head if negative, then d/c home tomorrow. start dvt ppx and plavix instead of asa if repeat cT head shows no bleed History Interval history: Patient was seen and examined. Follow-up on current diagnosis of CVA. No overnight events reported to me. Patient denies any chest pain, shortness breath, nausea/vomiting or severe headaches. Imaging, nursing note, chart, labs and old chart reviewed. Discussed with patient. Hospitalist Physical - Physical exam Narrative exam: Gen: WDWN, NAD, Awake, Alert, Orientated HEENT: NCAT, EOMI, PERRL, OP Clear Neck: supple, no adenopathy, no thyromegaly, no JVD CVS/Heart: RRR, normal S1S2, pulses present bilaterally Chest/Lungs: CTA B, Symmetrical chest expansion, good air entry bilaterally GI/Abdomen: soft, NTND, good bowel sounds, no guarding or rebound /Bladder: no suprapubic tenderness, no CVA or paraspinal tenderness Extermity/Skin: no c/c/e, no obvious rash MSK: FROM x 4, Neuro: CN 2-12 grossly intact except speech, no new focal deficits Psych: calm - Constitutional Vitals: Temp Pulse Resp BP Pulse Ox 98.0 F 80 18 164/77 96 08/26/19 16:56 08/26/19 16:56 08/26/19 16:56 08/26/19 16:56 08/26/19 16:56 Results - Labs CBC & Chem 7: 08/25/19 04:26 08/25/19 04:26 Labs: Laboratory Last Values WBC 6.2 K/mm3 (4.5-11.0) 08/25/19 04:26 RBC 4.15 M/mm3 (3.65-5.03) 08/25/19 04:26 Hgb 11.5 gm/dl (11.8-15.2) L 08/25/19 04:26 Hct 34.9 % (35.5-45.6) L 08/25/19 04:26 MCV 84 fl (84-94) 08/25/19 04:26 MCH 28 pg (28-32) 08/25/19 04:26 MCHC 33 % (32-34) 08/25/19 04:26 RDW 16.0 % (13.2-15.2) H 08/25/19 04:26 Plt Count 148 K/mm3 (140-440) 08/25/19 04:26 Lymph % (Auto) 42.4 % (13.4-35.0) H 08/25/19 04:26 [place] % (Auto) 11.8 % (0.0-7.3) H 08/25/19 04:26 Eos % (Auto) 8.9 % (0.0-4.3) H 08/25/19 04:26 Baso % (Auto) 1.1 % (0.0-1.8) 08/25/19 04:26 Lymph # 2.6 K/mm3 (1.2-5.4) 08/25/19 04:26 [place] # 0.7 K/mm3 (0.0-0.8) 08/25/19 04:26 Eos # 0.6 K/mm3 (0.0-0.4) H 08/25/19 04:26 Baso # 0.1 K/mm3 (0.0-0.1) 08/25/19 04:26 Seg Neutrophils % 35.8 % (40.0-70.0) L 08/25/19 04:26 Seg Neutrophils # 2.2 K/mm3 (1.8-7.7) 08/25/19 04:26 PT 13.1 Sec. (12.2-14.9) 08/24/19 21:10 INR 1.00 (0.87-1.13) 08/24/19 21:10 APTT 37.9 Sec. (24.2-36.6) H 08/24/19 21:10 Thrombin Time 16.1 Sec. (15.1-19.6) 08/24/19 21:10 Sodium 136 mmol/L (137-145) L 08/25/19 04:26 Potassium 4.3 mmol/L (3.6-5.0) 08/25/19 04:26 Chloride 99.2 mmol/L (98-107) 08/25/19 04:26 Carbon Dioxide 23 mmol/L (22-30) 08/25/19 04:26 Anion Gap 18 mmol/L 08/25/19 04:26 BUN 10 mg/dL (9-20) 08/25/19 04:26 Creatinine 0.8 mg/dL (0.8-1.5) 08/25/19 04:26 Estimated GFR > 60 ml/min 08/25/19 04:26 BUN/Creatinine Ratio 13 % 08/25/19 04:26 Glucose 139 mg/dL (75-100) H 08/25/19 04:26 POC Glucose 143 (70-105) H 08/26/19 17:03 Hemoglobin A1c 7.8 % (4-6) H 08/25/19 00:15 Calcium 9.1 mg/dL (8.4-10.2) 08/25/19 04:26 Total Bilirubin 0.30 mg/dL (0.1-1.2) 08/24/19 21:10 Direct Bilirubin < 0.2 mg/dL (0-0.2) 08/24/19 21:10 Indirect Bilirubin 0.1 mg/dL 08/24/19 21:10 AST 28 units/L (5-40) 08/24/19 21:10 ALT 20 units/L (7-56) 08/24/19 21:10 Alkaline Phosphatase 84 units/L (35-129) 08/24/19 21:10 Total Creatine Kinase 105 units/L (55-170) 08/24/19 21:10 CK-MB (CK-2) 2.4 ng/mL (0.0-4.0) 08/24/19 21:10 CK-MB (CK-2) Rel Index 2.2 (0-4) 08/24/19 21:10 Troponin T < 0.010 ng/mL (0.00-0.029) 08/25/19 00:15 Total Protein 7.4 g/dL (6.3-8.2) 08/24/19 21:10 Albumin 4.2 g/dL (3.9-5) 08/24/19 21:10 Albumin/Globulin Ratio 1.3 % 08/24/19 21:10 Triglycerides 72 mg/dL (2-149) 08/25/19 04:26 Cholesterol 135 mg/dL (50-199) 08/25/19 04:26 LDL Cholesterol Direct 76 mg/dL (50-130) 08/25/19 04:26 HDL Cholesterol 57 mg/dL (40-59) 08/25/19 04:26 Cholesterol/HDL Ratio 2.36 % 08/25/19 04:26 Active Medications - Current Medications Current Medications: Generic Name Dose Route Start Last Admin Trade Name Freq PRN Reason Stop Dose Admin Acetaminophen 650 mg 08/24/19 23:07 Tylenol PO Q4H PRN Pain MILD(1-3)/Fever >100.5/[id number] Arformoterol Tartrate 15 mcg 08/25/19 08:00 08/26/19 09:27 Brovana Nebu IH 15 mcg Q12HRT SAHARA Administration Atorvastatin Calcium 40 mg 08/25/19 22:00 08/25/19 22:58 Lipitor PO 40 mg QHS SAHARA Administration Bisacodyl 10 mg 08/24/19 23:07 Dulcolax AL QDAY PRN Constipation Budesonide 0.5 mg 08/25/19 08:00 08/26/19 09:28 Pulmicort IH 0.5 mg Q12HRT SAHARA Administration Dextrose 0 ml 08/24/19 23:07 D50w (25gm) Syringe IV Q30MIN PRN Hypoglycemia Protocol Docusate Sodium 100 mg 08/25/19 10:00 08/26/19 09:40 Colace PO 100 mg BID SAHARA Administration Gabapentin 100 mg 08/25/19 10:00 08/26/19 09:40 Gabapentin PO 100 mg DAILY SAHARA Administration Insulin Human Lispro 0 unit 08/25/19 00:00 08/26/19 18:28 Humalog SUB-Q Not Given Q6HR [facility] Protocol Labetalol HCl 10 mg 08/24/19 23:07 08/25/19 22:59 Labetalol IV 10 mg Q5MIN PRN Administration to maintain SBP < 180; DBP<105 Loratadine 10 mg 08/24/19 23:16 Claritin PO DAILY PRN Allergy Symptoms Magnesium Hydroxide 30 ml 08/24/19 23:07 Milk Of Magnesia PO Q4H PRN Constipation Metformin HCl 1,000 mg 08/25/19 08:00 08/26/19 18:28 Glucophage PO 1,000 mg BIDDIAB SAHARA Administration Ondansetron HCl 4 mg 08/24/19 23:07 Zofran IV Q8H PRN Nausea And Vomiting Oxybutynin Chloride 5 mg 08/25/19 10:00 08/26/19 09:40 Ditropan PO 5 mg BID SAHARA Administration Pantoprazole Sodium 40 mg 08/25/19 10:00 08/26/19 09:40 Protonix PO 40 mg QDAY SAHARA Administration Sodium Chloride 10 ml 08/25/19 10:00 08/25/19 22:41 Sodium Chloride Flush Syringe 10 Ml IV 10 ml BID SAHARA Administration Sodium Chloride 10 ml 08/24/19 23:07 Sodium Chloride Flush Syringe 10 Ml IV PRN PRN LINE FLUSH Nutrition/Malnutrition Assess - Dietary Evaluation Nutrition/Malnutrition Findings: Nutrition Notes Start: 08/25/19 14:02 Freq: Status: Active Protocol: Document 08/26/19 11:21 CT (Rec: 08/26/19 12:22 CT [id number]) Co-Sign 08/26/19 11:21 LM Nutrition Notes Initial or Follow up Assessment Current Diagnosis Coronary Artery Disease, Diabetes,Hypertension Other Pertinent Diagnosis TIA, CABG, GERD Current Diet const. CHO/cardiac Labs/Tests A1c 7.8 POC Glu 174 Pertinent Medications Lipitor Humalog Metformin Height 6 ft Weight 90.6 kg Usual Body Weight 88.451 kg [place] Body Weight (kg) 80.90 BMI 27.1 Intake Prior to Admission Fair Subjective/Other Information Follow up for diet education, completed full assessment. Pt stated that he had previous education on a heart healthy carbohydrate counting diet, but accepted more education and the handout. Pt stated he has noticed a steady weight gain over 1 year. Pt states that he has to chew his food a lot to be able to swallow it, was told that we can switch his diet to a mechanical soft. Pt ate about 100% of his breakfast tray. Burn Absent Trauma Absent GI Symptoms None Minimum of two criteria No physical signs of malnutrition #2 Nutrition Diagnosis Food and nutrition-related knowledge deficit Etiology limited prior knowledge on cardiac/consistent CHO diet As Evidenced by Signs and Symptoms pt acceptance of education and handout #1 Nutrition Diagnosis Inadequate oral intake Etiology secondary to CVA As Evidenced by Signs and Symptoms Pt stating difficulty chewing and low appetite PHYSICAL THERAPIST ASSISTANT Is patient on ventilator? No Is Patient Ambulatory and/or Out of Bed Yes REE-([facility]-ambulatory/OOB) [ 2169.700 NUTR.MSJOOB] Calculation Used for Recommendations [facility] Additional Notes Protein needs: 91-109 g/kg/day (1-1.2 g/kg/day) Fluid needs: 1 ml/kcal Nutrition Intervention Change Diet Order: Change to Mechanical Soft cardiac/consistent CHO Teaching Recipient Patient Learning Readiness Good Teaching Methods Discussion,Handout Response to Teaching Verbalize understanding Education Handouts Provided Heart Healthy CHO counting Barriers to Learning No Barriers RD phone number provided Yes Patient aware of follow up options Yes Goal #1 Meet >80% of energy and protein needs Anticipated Discharge Needs: Mechanical Soft Cardiac/ Consistent CHO diet Follow-Up By: 08/28/19 Additional Comments Follow up for PO intake and toleration to diet modifications
--- NOTE | 2019-08-26 19:19 | Cat Scan Report ---
CT head/brain wo con INDICATION / CLINICAL INFORMATION: 79 years Male; cva s/p tPA. TECHNIQUE: Routine CT head without contrast. All CT scans at this location are performed using CT dos e reduction for ALARA by means of automated exposure control. COMPARISON: The study is compared to the previous CT of 08/24/2019. FINDINGS: BRAIN / INTRACRANIAL CONTENTS: There is continued encephalomalacia involving inferior left cerebellum most consistent with old infarct. There otherwise appears be mild cerebral white matter disease most consistent with microvascular angiopathy. The findings correlate with the previous CT. There is no c lear CT evidence of acute intracranial hemorrhage or significant mass effect. ORBITS: No significant abnormality of visualized orbits. SINUSES / MASTOIDS: There is continued extensive opacification of the paranasal sinuses. 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 CRANIOCERVICAL JUNCTION: No significant abnormality. ADDITIONAL FINDINGS: None. IMPRESSION: 1. There is a persistent old infarct involving inferior left cerebellum with encephalomalacia. 2. There is otherwise mild microvascular angiopathy without CT evidence of acute intracranial hemorrh age or significant interval change from 08/24/2019. Signer Name: Ashwin Farias MD Signed: 08/26/2019 7:14 PM Workstation Name: [id number]
[2019-08-27] MEDS: INSULIN LISPRO 100 UNIT/ML SUB-Q SCH ×3 (01:00→13:41)
[2019-08-27] MEDS ORDERED: guaiFENesin 100 MG/5 ML ORAL LIQD PO PRN (02:34)
[2019-08-27 05:28] VITALS: BP 146/79
[2019-08-27] MEDS: ARFORMOTEROL 15 MCG/2 ML NEBU IH SCH (09:21)
[2019-08-27] MEDS: BUDESONIDE 0.5 MG/2 ML NEBU IH SCH (09:21)
[2019-08-27] MEDS ORDERED: HEPARIN 5,000 UNIT/1 ML VIAL SUB-Q SCH ×2 (10:00→22:00)
[2019-08-27] MEDS: PANTOPRAZOLE 40 MG TAB PO SCH (10:11)
[2019-08-27] MEDS: DOCUSATE SODIUM 100 MG CAP PO SCH (10:11)
[2019-08-27] MEDS: GABAPENTIN 100 MG CAP PO SCH (10:11)
[2019-08-27] MEDS: OXYBUTYNIN 5 MG TAB PO SCH (10:11)
[2019-08-27] MEDS: metFORMIN 500 MG TAB PO SCH ×2 (10:11→17:43)
--- NOTE | 2019-08-27 16:27 | Discharge Summary ---
Providers - Providers Date of Admission: 08/24/19 23:07 Date of discharge: 08/27/19 Attending physician: PETR SPENCER 08/24/19 23:07 Consult to Case Management [CONS] Routine Services Needed at Discharge: Physical Therapy Occupational Therapy Notified:: case management Consult to Dietitian/Nutrition [CONS] Routine Physician Instructions: Reason For Exam: Reason for Consult: Nutrition Recommendations Reason for Consult: Diet education Consult to Physician [CONS] Routine Comment: Consulting Provider: RJ FLORES Physician Instructions: Reason For Exam: CVA left cerebellar infarction Occupational Therapy Evaluate and Treat [CONS] Routine Comment: Reason For Exam: Neuro deficits Physical Therapy Evaluation and Treat [CONS] Routine Comment: Reason For Exam: Neuro deficits 08/24/19 23:10 Speech Therapy Evaluation and Treat [CONS] Routine Reason For Exam: swallow eval Primary care physician: HOME SERVICE TECHNICIAN Hospitalization Condition: Stable Hospital course: Patient is a 79-year-old -[place] male with history of hypertension, GERD, diabetes, coronary artery disease status post CABG and stents, TIA 2 who presents to [facility] ED via EMS with complaints of left-sided weakness and left hand numbness. * MRI brain without contrast IMPRESSION: 1. 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 2. There is otherwise mild microvascular angiopathy without evidence of acute infarction. There is pansinus inflammatory disease. * MR c-spine without contrast IMPRESSION: Shallow disc protrusion at C3-C4 disc level extending bilaterally Shallow midline disc protrusion at C6-C7 disc level * MRA head w/o contrast IMPRESSION: There is encephalomalacia involving inferior left cerebellum compatible old infarct. There is mild relative decrease of signal within the distal left vertebral artery which may reflect a decrease or altered flow. The motion degrades image quality, however, the MRA of the head otherwise appears unremarkable. * repeat CT head negative Discharge Diagnoses: Acute worsening of old Left CVA, CT Head shows evidence of remote left cerebellar infarction with ASA failure, s/p tPA s/p tPA HTN, uncontrolled DM2 GERD Disposition: -01 TO HOME OR SELFCARE Time spent for discharge: 32 minutes Core Measure Documentation - Palliative Care Palliative Care/ Comfort Measures: Not Applicable - Core Measures Any of the following diagnoses?: stroke - VTE Discharge Requirements Deep Vein Thrombosis/Pulmonary Embolism Present on Admission: No Has pt received <5 days of overlap therapy or INR<2.0: No Anticoagulant overlap therapy prescribed at discharge: No Contraindication No Overlap Therapy order at DC: Not Indicated - Stroke Discharge Requirements Statin for LDL = or >70 mg/dl on DC: Yes Anticoag for atrial fib/atrial flutter: No Reason for no anticoag for AF/F on DC: Not Indicated Antithrombotic for ischemic stroke: Yes Exam - Physical Exam Narrative exam: Gen: WDWN, NAD, Awake, Alert, Orientated HEENT: NCAT, EOMI, PERRL, OP Clear Neck: supple, no adenopathy, no thyromegaly, no JVD CVS/Heart: RRR, normal S1S2, pulses present bilaterally Chest/Lungs: CTA B, Symmetrical chest expansion, good air entry bilaterally GI/Abdomen: soft, NTND, good bowel sounds, no guarding or rebound /Bladder: no suprapubic tenderness, no CVA or paraspinal tenderness Extermity/Skin: no c/c/e, no obvious rash MSK: FROM x 4, Neuro: CN 2-12 grossly intact except speech, no new focal deficits Psych: calm - Constitutional Vitals: Temp Pulse Resp BP Pulse Ox 97.0 F L 85 22 146/79 96 08/27/19 04:33 08/27/19 10:00 08/27/19 10:00 08/27/19 04:33 08/27/19 10:00 Plan Activity: no driving until cleared by PCP, other (no strenous activity cleared PCP) Diet: low salt, diabetic Special Instructions: record daily BP diary, record blood sugar diary Follow up with: PRIMARY MD FATMATA [Primary Care Provider] - 3-5 Days BRENDEN KUMAR MD [Staff Physician] - 7 Days Prescriptions: AtorvaSTATin [Lipitor] 40 mg PO QHS #30 tab metFORMIN [Glucophage] 2 tab PO BID #120 tab Clopidogrel [Plavix] 75 mg PO QDAY #30 tablet ALBUTEROL Inhaler (OR & NICU) [ProAir HFA Inhaler] 2 puff IH QID PRN #8.5 gram PRN Reason: Shortness Of Breath guaiFENesin [Robitussin] 200 mg PO Q4H PRN #30 oral.liqd PRN Reason: Cough
[2019-08-27] MEDS ORDERED: CLOPIDOGREL 75 MG TAB PO SCH (16:30)
== END 2019-08-27 18:20 | disposition home or self-care (01) | DRG 62 ==
LOC: ED 20:26 → CC1 23:07 → 4A 08-25 23:13
PROVIDERS: ADMIT Internal Medicine; ATTEND Internal Medicine
DX: I63.9 Cerebral infarction, unspecified (principal); G81.94 Hemiplegia, unspecified affecting left nondominant side; E11.8 Type 2 diabetes mellitus with unspecified complications; K21.9 Gastro-esophageal reflux disease without esophagitis; R29.703 NIHSS score 3; I10 Essential (primary) hypertension; I25.10 Atherosclerotic heart disease of native coronary artery without angina pectoris; Z95.1 Presence of aortocoronary bypass graft; Z95.5 Presence of coronary angioplasty implant and graft; Z82.49 Family history of ischemic heart disease and other diseases of the circulatory system; Z79.899 Other long term (current) drug therapy; Z79.82 Long term (current) use of aspirin; Z82.3 Family history of stroke; Z72.89 Other problems related to lifestyle
CPT/HCPCS: 36415; 70450; 70544; 70551; 71045; 72141; 80048; 80061; 80076; 82550; 82553; 82962; 83036; 84484; 85025; 85610; 85670; 85730; 93005; 93010; 93306; 94640; 96365; G0378; A9270-GY; J1644; J1815; J2997

== ENCOUNTER 2020-02-15 20:15 | Emergency (ER) | payer MEDICARE ==
[2020-02-15] MEDS ORDERED: ONDANSETRON 4 MG/2 ML INJ IV ONE (21:02)
[2020-02-15] MEDS ORDERED: MORPHINE 4 MG/1 ML INJ IV ONE (21:02)
[2020-02-15] MEDS ORDERED: ONDANSETRON 4 MG/2 ML INJ ONE (21:04)
[2020-02-15] MEDS ORDERED: MORPHINE 4 MG/1 ML INJ ONE (21:05)
--- NOTE | 2020-02-15 21:05 | Emergency Department Report ---
ED Headache HPI - General Chief Complaint: Headache Stated Complaint: HEADACHE/NAUSEA Time Seen by Provider: 02/15/20 20:56 - History of Present Illness Initial Comments: Patient is 80 years old male with history of hypertension, diabetes and COPD. Patient presented to the ER via EMS with a main complaint of headache since yest erday. Patient describes his headache as aching and throbbing pain mainly to the right area. He stated that he has been nauseated also but no vomiting. Patient denied any fever, neck pain, weakness numbness or tingling sensation. Patient stated that he had headache like this 2-month ago and he took some medication and it did go away. Patient denied any chest pain, abdominal pain, runny nose cough or congestion. Allergies/Adverse Reactions: Allergies ibuprofen Allergy (Severe, Verified 12/05/17 15:41) Shortness of Breath Chest Pain Home Medications: Ambulatory Orders Cetirizine HCl [All Day Allergy] 10 mg PO DAILY PRN 09/18/17 Fluticasone/Salmeterol (Nf) [Advair 250-50 Diskus (Nf)] 1 puff INHALATION BID 10/17/17 Metoprolol [Lopressor TAB] 100 mg PO BID 10/17/17 Acetaminophen [Acetaminophen TAB] 1 tab PO Q4H PRN #15 tablet 08/27/19 Albuterol INH(or & Nicu Only) [ProAir HFA Inhaler] 2 puff IH QID PRN #8.5 gram 08/27/19 AtorvaSTATin [Lipitor] 40 mg PO QHS #30 tab 08/27/19 Clopidogrel [Plavix] 75 mg PO QDAY #30 tablet 08/27/19 Gabapentin 100 mg PO DAILY #30 tab 08/27/19 Oxybutynin [Ditropan] 5 mg PO BID #60 08/27/19 Pantoprazole [Protonix TAB] 40 mg PO QDAY #30 08/27/19 amLODIPine 10 mg PO DAILY #30 tab 08/27/19 guaiFENesin [Robitussin] 200 mg PO Q4H PRN #30 oral.liqd 08/27/19 metFORMIN [Glucophage] 2 tab PO BID #120 tab 08/27/19 ED Review of Systems ROS: Stated complaint: HEADACHE/NAUSEA Other details as noted in HPI Comment: All other systems reviewed and negative Constitutional: denies: chills, fever Respiratory: denies: cough, shortness of breath Cardiovascular: denies: chest pain, palpitations Gastrointestinal: nausea. denies: abdominal pain, vomiting, diarrhea, constipation, hematemesis, melena, hematochezia Musculoskeletal: denies: back pain Neurological: headache, weakness (Generalized weakness.). denies: numbness, paresthesias, confusion, abnormal gait ED Past Medical Hx - Past Medical History Previous Medical History?: Yes Hx Hypertension: Yes Hx Diabetes: Yes Hx GERD: Yes Hx Arthritis: Yes Hx COPD: Yes Additional medical history: TIA - Surgical History Past Surgical History?: Yes Hx Coronary Stent: Yes Additional Surgical History: bypass, cardiac stents - Social History Smoking Status: Never Smoker - Medications Home Medications: Home Medications Medication Instructions Recorded Confirmed Last Taken Type Cetirizine HCl [All Day Allergy] 10 mg PO DAILY PRN 09/18/17 08/24/19 10/29/17 History Fluticasone/Salmeterol (Nf) 1 puff INHALATION BID 10/17/17 08/24/19 08/24/19 History [Advair 250-50 Diskus (Nf)] Metoprolol [Lopressor TAB] 100 mg PO BID 10/17/17 08/24/19 08/24/19 History Acetaminophen [Acetaminophen TAB] 1 tab PO Q4H PRN #15 tablet 08/27/19 Unknown Rx Albuterol INH(or & Nicu Only) 2 puff IH QID PRN #8.5 gram 08/27/19 Unknown Rx [ProAir HFA Inhaler] AtorvaSTATin [Lipitor] 40 mg PO QHS #30 tab 08/27/19 Unknown Rx Clopidogrel [Plavix] 75 mg PO QDAY #30 tablet 08/27/19 Unknown Rx Gabapentin 100 mg PO DAILY #30 tab 08/27/19 08/24/19 08/24/19 Rx Oxybutynin [Ditropan] 5 mg PO BID #60 08/27/19 08/24/19 08/24/19 Rx Pantoprazole [Protonix TAB] 40 mg PO QDAY #30 08/27/19 08/24/19 08/24/19 Rx amLODIPine 10 mg PO DAILY #30 tab 08/27/19 08/24/19 08/24/19 Rx guaiFENesin [Robitussin] 200 mg PO Q4H PRN #30 oral.liqd 08/27/19 Unknown Rx metFORMIN [Glucophage] 2 tab PO BID #120 tab 08/27/19 Unknown Rx ED Physical Exam - General Limitations: No Limitations General appearance: alert, in no apparent distress - Head Head exam: Present: atraumatic, normocephalic, normal inspection - Eye Eye exam: Present: normal appearance, PERRL - ENT ENT exam: Present: normal exam, normal orophraynx, mucous membranes moist - Neck Neck exam: Present: normal inspection, full ROM. Absent: tenderness, meningismus, lymphadenopathy, thyromegaly - Respiratory Respiratory exam: Present: normal lung sounds bilaterally - Cardiovascular Cardiovascular Exam: Present: regular rate, normal rhythm, normal heart sounds - GI/Abdominal GI/Abdominal exam: Present: soft, normal bowel sounds. Absent: distended, tenderness, guarding, rebound, rigid, organomegaly, mass, bruit, pulsatile mass, hernia - Extremities Exam Extremities exam: Present: normal inspection, full ROM, normal capillary refill. Absent: calf tenderness - Back Exam Back exam: Present: normal inspection, full ROM. Absent: tenderness, CVA tenderness (L) - Neurological Exam Neurological exam: Present: alert, oriented X3, CN II-XII intact, normal gait, reflexes normal. Absent: motor sensory deficit - Psychiatric Psychiatric exam: Present: normal mood - Skin Skin exam: Present: warm, intact, normal color ED Course Vital Signs 02/15/20 02/15/20 02/15/20 20:34 20:42 20:46 Temperature 97.9 F Pulse Rate 76 76 74 Respiratory 18 20 23 Rate Blood Pressure 156/79 156/79 O2 Sat by Pulse 95 95 Oximetry 02/15/20 02/15/20 02/15/20 21:00 21:05 21:16 Temperature Pulse Rate 74 74 Respiratory 19 20 27 H Rate Blood Pressure 156/79 O2 Sat by Pulse 95 94 Oximetry 02/15/20 02/15/20 02/15/20 21:30 21:35 21:42 Temperature Pulse Rate 75 Respiratory 18 20 20 Rate Blood Pressure 165/89 O2 Sat by Pulse 96 96 Oximetry 02/15/20 02/15/20 02/15/20 21:46 22:00 22:16 Temperature Pulse Rate 73 73 77 Respiratory 24 20 19 Rate Blood Pressure 165/89 167/79 167/79 O2 Sat by Pulse 95 92 96 Oximetry 02/15/20 02/15/20 22:34 22:46 Temperature Pulse Rate 71 75 Respiratory 40 H 19 Rate Blood Pressure O2 Sat by Pulse 96 95 Oximetry ED Medical Decision Making - Lab Data Result diagrams: 02/15/20 21:13 02/15/20 21:13 - EKG Data -: EKG Interpreted by Me EKG shows normal: sinus rhythm Rate: normal - EKG Data Interpretation: no acute changes - Radiology Data Radiology results: report reviewed - Medical Decision Making Patient is 80 years old male with history of hypertension, diabetes and COPD. Patient presented to the ER via EMS with a main complaint of headache since yesterday. Patient describes his headache as aching and throbbing pain mainly to the right area. He stated that he has been nauseated also but no vomiting. Patient denied any fever, neck pain, weakness numbness or tingling sensation. Patient stated that he had headache like this 2-month ago and he took some medication and it did go away. Patient denied any chest pain, abdominal pain, runny nose cough or congestion. Patient received morphine and Zofran. Patient stated that he is feeling much better. Labs reviewed and is unremarkable. CT brain showed sinusitis. No evidence of stroke as patient stroke scale is 0. Patient given prescription for Augmentin and Flonase and advised to follow-up with his primary care physician in the next 2 to 3 days and to return to the ER if he develop any new symptoms. Critical care attestation.: If time is entered above; I have spent that time in minutes in the direct care of this critically ill patient, excluding procedure time. ED Disposition Clinical Impression: Acute headache, Sinusitis Disposition: -01 TO HOME OR SELFCARE Is pt being admited?: No Condition: Stable Instructions: Acute Bacterial Rhinosinusitis (ED), Acute Headache (ED) Referrals: PRIMARY CARE, [Primary Care Provider] - 3-5 Days
[2020-02-15 21:23] LABS: Basophils # (Auto) 0.1 K/mm3 (0.0-0.1); Basophils % (Auto) 0.8 % (0.0-1.8); Eosinophils # (Auto) 0.3 K/mm3 (0.0-0.4); Eosinophils % (Auto) 3.7 % (0.0-4.3); Hematocrit 37.3 % (35.5-45.6); Hemoglobin 12.5 gm/dl (11.8-15.2); Lymphocytes # (Auto) 1.4 K/mm3 (1.2-5.4); Lymphocytes % (Auto) 17.1 % (13.4-35.0); Mean Corpuscular HGB Conc 34 % (32-34); Mean Corpuscular Volume 84 fl (84-94); Monocytes # (Auto) 0.9 K/mm3 (0.0-0.8); Monocytes % (Auto) 10.8 % (0.0-7.3); Platelet Count 184 K/mm3 (140-440); Red Blood Count 4.44 M/mm3 (3.65-5.03); Red Cell Distribution Width 16.7 % (13.2-15.2)
[2020-02-15 21:33] LABS: INR 0.98 (0.87-1.13)
[2020-02-15 21:34] LABS: Partial Thromboplastin Time 36.6 Sec. (24.2-36.6)
[2020-02-15 21:45] LABS: BUN/Creatinine Ratio 7; Blood Urea Nitrogen 5 mg/dL (9-20); Calcium 9.3 mg/dL (8.4-10.2); Hemolysis Index 18
[2020-02-15 21:48] LABS: Alanine Aminotransferase 17 units/L (7-56); Albumin 4.3 g/dL (3.9-5); Bilirubin,Direct < 0.2 mg/dL (0-0.2)
--- NOTE | 2020-02-15 22:57 | Cat Scan Report ---
CT head without contrast HISTORY: MAIN: Headache x2days, Patient describes his headache as aching and throbbing pain mainly to the right area. TECHNIQUE: Axial imaging performed from the skull apex through the skull base without the use of con trast. All CT scans at this location are performed using CT dose reduction for ALARA by means of aut omated exposure control. COMPARISON: CT head from 08/26/2019 FINDINGS: Parenchyma: No acute intracranial hemorrhage or parenchymal abnormality. 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 Ventricles: There is mild diffuse brain atrophy with commensurate ventricular enlargement which is l ikely age appropriate. Soft tissues: Soft tissues including the orbits appear normal. Bones: No acute osseous abnormality. Sinuses: There is again diffuse paranasal sinus mucosal thickening with areas of mucoperiosteal reac tive change suggesting chronicity. The mastoid air cells remain clear. IMPRESSION: 1. No acute abnormality. 2. Diffuse paranasal sinus disease again noted, some of which appears to be chronic sinusitis. Signer Name: Alfonzo Cantu MD Signed: 02/15/2020 10:53 PM Workstation Name: [id number]
[2020-02-16 00:50] LABS: Bilirubin,Urine NEG (Negative); Blood,Urine NEG (Negative); Color,Urine Yellow (Yellow); Mucus,Urine FEW /HPF; Protein,Urine <15 mg/dL mg/dL (Negative); Urobilinogen,Urine < 2.0 mg/dL (<2.0); WBC,Urine < 1.0 /HPF (0.0-6.0)
[2020-02-16 13:39] VITALS: BP 135/73
== END 2020-02-16 01:15 | disposition home or self-care (01) ==
LOC: ED 20:15
DX: J32.9 Chronic sinusitis, unspecified (principal); R51 Headache; I10 Essential (primary) hypertension; E11.9 Type 2 diabetes mellitus without complications; J44.9 Chronic obstructive pulmonary disease, unspecified; K21.9 Gastro-esophageal reflux disease without esophagitis; M19.90 Unspecified osteoarthritis, unspecified site; Z95.5 Presence of coronary angioplasty implant and graft; Z88.6 Allergy status to analgesic agent; Z86.73 Personal history of transient ischemic attack (TIA), and cerebral infarction without residual deficits; Z79.899 Other long term (current) drug therapy
CPT/HCPCS: 36415; 70450; 80048; 80076; 81001; 83690; 84484; 85025; 85610; 85730; 93005; 96374; 96375; 99285; J2270; J2405